=== PATIENT | female | born 1980 | race Two or more races ===

== ENCOUNTER 2022-12-29 09:27 | Outpatient (REF) | payer MEDICAID, SELFPAY ==
[2022-12-29 11:49] LABS: MANUAL DIFF FLAG NO
[2022-12-29 12:15] LABS: Basophils Percent Auto 0.5 % (0-2); Eosinophils Absolute Auto 0.1 X10*3/uL (0.0-0.4); Eosinophils Percent Auto 1.6 % (0-4); Hematocrit 38.2 % (37.0-47.0); Hemoglobin 12.8 g/dl (12.0-16.0); Imm Gran Abs Auto 0.02 X10*3/uL (0.00-0.03); Imm Gran Pct Auto 0.4 % (0.0-0.4); Lymphocytes Absolute Auto 1.5 X10*3/uL (1.2-4.9); Lymphocytes Percent Auto 27.9 % (20-40); Mean Corpuscular HGB Conc 33.5 g/dl (31.0-35.0); Mean Corpuscular Hemoglobin 28.4 pg (27.0-33.0); Mean Corpuscular Volume 84.9 fL (80.0-98.0); Mean Platelet Volume 11.3 fL (9.4-12.3); Monocytes Absolute Auto 0.4 X10*3/uL (0.1-1.2); Monocytes Percent Auto 7.1 % (2-11); Neutrophils Absolute Auto 3.4 x10*3/uL (2.0-8.3); Neutrophils Percent Auto 62.5 % (45-73); Platelet Count 269 X10*3/uL (160-400); Red Cell Distribution Width 13.2 % (11.0-16.0); White Blood Count 5.5 X10*3/uL (4.8-10.8)
[2022-12-29 12:21] LABS: Estimated Average Glucose 183 mg/dL
[2022-12-29 12:36] LABS: Alanine Aminotransferase 14 U/L (0-31); Albumin Level 3.5 g/dL (3.5-5.0); Alkaline Phosphatase 62 U/L (39-117); Anion Gap 14 (12-20); Aspartate Amino Transferase 16 U/L (5-31); Bilirubin Total 0.3 mg/dL (0.0-1.0); Blood Urea Nitrogen 17 mg/dL (9-16); Calcium 9.3 mg/dL (8.4-10.2); Carbon Dioxide 24 mmol/L (22-29); Chloride 106 mmol/L (96-108); Estimated Glomerular Filt Rate > 60; Glucose Random 142 mg/dL (60-115); Sodium 140 mmol/L (135-145); Total Protein 6.7 g/dL (6.5-8.0)
[2022-12-29 13:15] LABS: Creatinine Urine 80.12 mg/dL
== END 2022-12-29 09:28 | disposition home or self-care (01) ==
LOC: HO.HHCL 09:27
PROVIDERS: Visit Provider Internal Medicine Geriatric Medicine
DX: I10 Essential (primary) hypertension (principal); E11.40 Type 2 diabetes mellitus with diabetic neuropathy, unspecified; E78.00 Pure hypercholesterolemia, unspecified; D53.8 Other specified nutritional anemias; R01.1 Cardiac murmur, unspecified; Z79.4 Long term (current) use of insulin; Z90.710 Acquired absence of both cervix and uterus
CPT/HCPCS: 36415; 80053; 82043; 82570; 83036; 85025

== ENCOUNTER 2023-01-20 08:53 | Outpatient (REF) | payer MEDICAID, SELFPAY ==
[2023-01-20 12:06] LABS: Anion Gap 12 (12-20); Blood Urea Nitrogen 19 mg/dL (9-16); Calcium 8.9 mg/dL (8.4-10.2); Carbon Dioxide 28 mmol/L (22-29); Chloride 102 mmol/L (96-108); Estimated Glomerular Filt Rate > 60; Glucose Random 135 mg/dL (60-115); Potassium 3.9 mmol/L (3.3-5.1); Sodium 138 mmol/L (135-145)
[2023-01-20 12:53] LABS: Creatinine Urine 110.38 mg/dL; Microalbum/Creatinine Ratio Ur 246.4 ug/mg cr (<30)
== END 2023-01-20 08:54 | disposition home or self-care (01) ==
LOC: HO.HHCL 08:53
PROVIDERS: Visit Provider Family Medicine
DX: E10.21 Type 1 diabetes mellitus with diabetic nephropathy (principal); R80.9 Proteinuria, unspecified
CPT/HCPCS: 36415; 80048; 82043; 82570

== ENCOUNTER 2023-01-21 08:57 | Outpatient (REF) | payer MEDICAID, SELFPAY ==
[2023-01-21 11:35] LABS: Cholesterol 149 mg/dL (<200); HDL Cholesterol 55 mg/dL (>40); LDL Cholesterol Calculated 81 mg/dL (<100); Triglycerides 68 mg/dL (<150)
[2023-01-21 11:51] LABS: Syphilis Screen Nonreactive (Nonreactive)
[2023-01-21 11:52] LABS: HBS Num1 0.25 mIU/mL (0-7.99); HBc Num1 0.08 S/CO (0.00-0.79); HBsAGNum1 0.38 S/CO (0.00-0.99); HIV AB/AG Nonreactive (Nonreactive); HIV Num 1 0.05 S/CO (0.00-0.99); Hepatitis B Core Antibody Nonreactive (Nonreactive); Hepatitis B Surface Antigen Negative (Negative); ~Hepatitis B Surface Antibody NONREACTIVE (Nonreactive); ~Hepatitis C Antibody Nonreactive (Nonreactive)
[2023-01-21 11:54] LABS: TSH reflex Free T4 1.59 uIU/mL (0.32-4.0)
[2023-01-21 12:13] LABS: Reflex LDLD? No
[2023-01-21 14:12] LABS: CT PCR NOT DETECTED (Not Detect.); NG PCR NOT DETECTED (Not Detect.)
== END 2023-01-21 08:58 | disposition home or self-care (01) ==
LOC: HO.HHCL 08:57
PROVIDERS: Visit Provider Family Medicine
DX: E10.21 Type 1 diabetes mellitus with diabetic nephropathy (principal); I10 Essential (primary) hypertension; Z11.3 Encounter for screening for infections with a predominantly sexual mode of transmission
CPT/HCPCS: 0353U; 80061; 84443; 86704; 86706; 86780; 86803; 87340; 87389

== ENCOUNTER → 2023-01-29 10:43 | Outpatient (REF) | payer MEDICAID, SELFPAY ==
--- NOTE | 2023-01-29 10:49 | CA_ITS ---
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 Normal LV systolic and diastolic function 2. Bicuspid aortic valve with normal Dopplers 3. Upper limits of normal ascending aorta 4. No gross pericardial effusion Findings Left Ventricle Normal left ventricular size, thickness, and systolic function. The visually estimated ejection fraction is between 55-60%. Diastolic function is normal for age. Right Ventricle Normal right ventricular cavity size and systolic function. Atria Both atria are normal in size. There is no evidence of interatrial shunt. Aortic Valve There is a bicuspid aortic valve. There is mild aortic valve stenosis. There is no aortic valve regurgitation. Mitral Valve Normal mitral valve structure and function. There is trace mitral valve regurgitation. There is no mitral valve stenosis. Pulmonic Valve The pulmonic valve is likely normal. Tricuspid Valve Normal tricuspid valve structure. Tricuspid regurgitation envelope is inadequate for calculation of right ventricular systolic pressure. Normal right atrial pressure. Great Vessels The pulmonary artery was not well visualized. Venous The inferior vena cava is normal in size and collapses greater than 50% with inspiration. Pericardium/Pleural There is no evidence of pericardial effusion. Prior Study Comparison No prior study available for comparison. Measurements 2D Linear Measurements LVOT Diam: 2.00 3.0+(-)1.3 cm 2D Systolic Function EF 4C: 52.00 >55% EF 2C: 56.40 >55% EF BiP: 54.70 >55% Mitral Valve MV Pk E: 0.82 MV PK A: 0.49 MV Decel Time: 174.00 E/A: 1.70 E'Lateral: 9.79 E'Medial: 7.72 E/E' Med: 10.60 E/E' Lat: 8.40 PHT: 51.00 MVA PHT: 4.31 Decel [place]: 4.69 Aortic Valve AoV Pk Ismael: 2.35 AoV Mn Ismael: 1.63 AoV VTI: 0.48 AoV Pk Grad: 22.00 Aov Mn Grad: 12.00 TONJA Cont.VTI: 1.24 LVOT LVOT Pk Ismael: 0.81 LVOT Mn Ismael: 0.58 LVOT VTI: 0.19 LVOT Pk Grad: 3.00 LVOT Mn Grad: 1.00 LVOT Diam: 2.00 LVOT Area: 3.14 Diastolic Function MV Pk E: 0.82 MV Pk A: 0.49 E/A: 1.70 E'Medial: 7.72 E/E' Med: 10.60 E' Laterial: 9.79 E/E' Lat: 8.40 Right Ventricle TAPSE (mm): 25.40 TVS' Ismael: 11.20 Tricuspid Valve RA Press: 3.00 Great Vessels Aorta Sinus of Valsalva: 3.20 2.0-3.5 cm Ao Asc: 3.50 2.1-3.4 cm Ao Arch: 3.10 Updated in Other Vendor System with Status of Final Anival Vergara MD electronically signed on 01/30/2023 8:25:40 AM with status of Final
== END ==
LOC: HO.CARD 10:43
PROVIDERS: Visit Provider Internal Medicine Geriatric Medicine
DX: I10 Essential (primary) hypertension (principal)
CPT/HCPCS: 93306

== ENCOUNTER → 2023-01-29 10:49 | Outpatient (BNV) | payer MEDICAID, SELFPAY | PROVIDERS: Visit Provider Internal Medicine Cardiovascular Disease | DX: I35.0 Nonrheumatic aortic (valve) stenosis (principal) | CPT/HCPCS: 93306 ==

== ENCOUNTER 2024-05-06 13:56 | Emergency (ER) | payer MEDICAID, SELFPAY ==
--- NOTE | ~2024-05-06 | XR_ITS ---
EXAMINATION: XR CHEST CLINICAL INFORMATION: fevers, cough COMPARISON: None available. TECHNIQUE: Frontal view of the chest was obtained. FINDINGS: Pulmonary reticular pattern. No gross consolidation pleural effusion or pneumothorax. No hyperinflation. Cardiomediastinal silhouette is normal in size. Osseous structures are intact. XR/XR chest 1V IMPRESSION: Consider acute inflammatory versus infectious process involving the small pulmonary airway Electronically signed by: Mehran Roblero MD 05/06/2024 03:37 PM EST
[2024-05-06 14:31] VITALS: BP 130/72; BP 147/83; PULSE 118; PULSE 120; RESP 20; TEMP 39.4; O2SAT 98; O2SAT 99; BMI 21.8
--- NOTE | 2024-05-06 14:41 | ECG_ITS ---
Test Reason : WEAKNESS Blood Pressure : */* mmHG Vent. Rate : 120 BPM Atrial Rate : 120 BPM P-R Int : 122 ms QRS Dur : 66 ms QT Int : 292 ms P-R-T Axes : 52 60 8 degrees QTcB Int : 412 ms Sinus tachycardia Nonspecific T wave abnormality Abnormal ECG No previous ECGs available Referred By: Von Elias Electronically Signed By: CALE KING
--- NOTE | 2024-05-06 14:42 | ED.GENADULT ---
HPI - General Adult General Chief complaint: General Medical Stated complaint: ?UTI PER EMS Time Seen by Provider: 05/06/24 14:49 Source: patient, EMS, old records reviewed and interpreter deaf Mode of arrival: EMS Limitations: no limitations History of Present Illness ED Provider: CAMACHO HERNANDEZ narrative: 43 yo female with PMH of DM, HLD who denies travel or sick contacts but states since this morning her sugar read 400 and she started to have vaginal pain as well as dysuria. She denies discharge or concern for STI. She feels cough with nausea and weakness. She notes she was coughing so hard at one point she saw streaks of blood- not on thinners. She has had fevers up to 103 but no meds taken. She took her insulin this AM but did not eat. Patient denies abdominal pain but has diffuse body aches. MD complaint: fevers, not feeling well, dysuria, vaginal lesions, myalgias. Location: genitals, left, right, upper extremity and lower extremity Radiation: non-radiation Severity: moderate Quality: aching Pain Consistency: constant Relieving factors: none Exacerbating factors: movement Associated symptoms: cough, fever/chills, headaches, loss of appetite, malaise, nausea/vomiting, rash and weakness Treatments prior to arrival: none Related Data Previous Rx's ?Medication ?Instructions ?Recorded cefuroxime axetil 500 mg tablet 500 mg PO BID 7 days #14 tabs 05/06/24 valacyclovir 1 gram tablet 1,000 mg PO BID 7 days #14 tabs 05/06/24 Allergies Allergy/AdvReac Type Severity Reaction Status Date / Time No Known Allergies Allergy Verified 05/06/24 14:32 Review of Systems Review of Systems: Constitutional : No Weight loss, pos Fever, pos Chills ENT/Mouth : No sore throat, No Rhinorrhea Eyes: No Swelling, No Redness Cardiovascular : No Chest Pain, No SOB, NoEdema Respiratory : pos Cough, pos Sputum, No Wheezing Gastrointestinal : Positive Nausea, Positive Vomiting, no Diarrhea, no abdominal Pain, No Hematochezia, No Melena Genitourinary : pos Dysuria, No Urinary Frequency, No Hematuria, No Urgency Musculoskeletal : No joint pain, pos Myalgias, No Joint Swelling Skin : No Skin Lesions, No rash Neuro : No Weakness, No Numbness, No Dizziness, pos Headache All other systems reviewed and are negative. PMFSH Past Medical History Attestation statement: The following information was validated with the patient. Source: old records reviewed Medical History (Updated 05/07/24 @ 00:02 by Damien Dixon) Diabetes Hyperlipidemia Social History Social History (Updated 05/06/24 @ 15:32 by Patricia Salazar DO) Patient Tobacco Use Status: Never used Tobacco Smoked in Last 30 Days: No Use of substances other than those prescribed or required for medical reasons: No Advance Directives: No Advance Directives Information Provided: Yes Physical Exam ED Vital Signs: Vital Signs - 24 hr 05/06/24 14:31 05/06/24 15:57 05/06/24 17:03 Temperature 103.0 F H 100.2 F 98.8 F Pulse Rate 120 H 116 H 114 H Respiratory Rate 20 20 21 H Blood Pressure 130/72 117/56 L 119/63 Pulse Oximetry 99 97 97 Oxygen Delivery Method Room Air Room Air 05/06/24 17:45 05/06/24 19:21 Temperature 98.2 F Pulse Rate 108 H 110 H Respiratory Rate 19 17 Blood Pressure 121/64 142/88 H Pulse Oximetry 95 98 Oxygen Delivery Method Room Air Room Air BMI result Body Mass Index 21.8 Appearance: Alert. Oriented X3. No acute distress. Eyes: Pupils equal, round and reactive to light. ENT: Pharynx dry MM Neck: Normal inspection. Neck supple. CVS: tachycardic heart rate and rhythm. Pulses normal. Respiratory: No respiratory distress. Breath sounds normal. Abdomen: Soft and nontender. : Mary RN present on inner labia are vesicular lesions no discharge and no abscess noted lesions are on both inner labia Skin: Skin warm and dry. Normal skin color. Normal skin turgor. Extremities: No lower extremity edema. No calf ttp Neuro: Oriented X 3. No motor deficit. No sensory deficit. CN2-12 intact Course Course Course Narrative: diabetic patient complains of waking up this morning feeling very short of breath, complains of burning with urination complains of shortness of breath complains of fever, cough believe she coughed up sputum She also complains of vaginal itching and a bump in vaginal area Labs EKG and x-ray are ordered This is a rapid medical exam done in triage pending full history physical evaluation and dispo from ER provider Reevaluation(s) Reevaluation #1: Dr. Hidalgo: This patient was signed out to me by the previous emergency physician. The patient is a 43-year-old diabetic who is here with urinary symptoms and also vaginal discomfort. She has had symptoms for about 4 or 5 days. Additionally she has had a cough over the last 24 hours with some blood-tinged sputum. Her chest x-ray was read as showing a pulmonary reticular pattern possibly consistent with an infectious process. Her urinalysis is suggestive of a UTI. Her physical exam is consistent with genital herpes. This seems to be a first-time episode of genital herpes. She will be started on valacyclovir 1000 mg b.i.d. x7 days. The patient had received 1 g of IV ceftriaxone prior to sign-out. Since the patient may have some degree of a pneumonia as well as a UTI the patient will be prescribed cefuroxime 500 mg b.i.d. x7 days. The patient should continue her usual diabetic care. She should return if she feels significantly worse. Time: 19:37 Reevaluation #2: Filomena Tilley NP 05/13/2024 14:41 - HSV culture is positive, patient contacted with the use of a park interpreter to be made aware of this finding, discussed signs and symptoms of reoccurrence, potential for episodic antiviral versus daily suppression should she have multiple recurrences in the future, possibilities for transmission, and making any intimate partner is aware. She verbalized understanding. Had no questions. Medications Administered Discontinued Medications Generic Name Dose Route Start Last Admin Trade Name Freq PRN Reason Stop Dose Admin Ceftriaxone Sodium 1 gm 05/06/24 14:49 05/06/24 15:12 Ceftriaxone Sodium 1 Gm Vial IVPUSH 05/06/24 14:50 1 gm ONCE ONE Administration Acetaminophen 1,000 mg in 100 mls @ 400 mls/hr 05/06/24 14:49 05/06/24 15:57 Ofirmev IV 05/06/24 15:03 Infused ONCE ONE Infusion Lactated Ringer's 1,779 mls @ 1,779 mls/hr 05/06/24 14:49 05/06/24 16:45 Lr 30 ml/kg infuse over 1 hr (1779 ml) 05/06/24 15:48 Infused IV Infusion .Q1H ONE Valacyclovir HCl 1,000 mg 05/06/24 19:29 05/06/24 19:47 Valacyclovir Hcl 1,000 Mg Tablet PO 05/06/24 19:30 1,000 mg ONCE ONE Administration Medical Decision Making Medical Decision Making [facility] Narrative: 43 yo female with PMH of DM, HLD here with multiple complaints including fevers, urinary symptoms, cough, lesions in vaginal area at this time will need labs, lactic acid, cultures, UA, HSV swab, IVF, tylenol and empiric ceftriaxone. She has no abdominal ttp on exam. No gap and HCO3 normal doubt DKA. Differential Diagnosis Differential Diagnoses: The differential diagnosis associated with the presentation includes viral illness, UTI, pneumonia, herpes vaginalis Admission/Observation Consideration of admission/observation: Escalation of care including admission/observation considered signed out to Dr. Hidalgo pending workup Lab Data [facility] Lab Attestation statement: I reviewed the patient's lab results. 05/06/24 15:03 05/06/24 15:03 Labs: Lab Results 05/06/24 05/06/24 05/06/24 Range/Units 14:41 15:03 15:11 WBC 7.1 (4.8-10.8) X10*3/uL RBC 4.25 (4.20-5.50) X10*6/uL Hgb 11.8 L (12.0-16.0) g/dl Hct 34.9 L (37.0-47.0) % MCV 82.1 (80.0-98.0) fL MCH 27.8 (27.0-33.0) pg MCHC 33.8 (31.0-35.0) g/dl RDW 12.7 (11.0-16.0) % Plt Count 216 (160-400) X10*3/uL MPV 11.1 (9.4-12.3) fL Immature Gran % (Auto) 0.4 (0.0-0.4) % Neut % (Auto) 77.3 H (45-73) % Lymph % (Auto) 11.9 L (20-40) % [place] % (Auto) 9.7 (2-11) % Eos % (Auto) 0.3 (0-4) % Baso % (Auto) 0.4 (0-2) % Lymph # (Auto) 0.9 L (1.2-4.9) X10*3/uL [place] # (Auto) 0.7 (0.1-1.2) X10*3/uL Eos # (Auto) 0.0 (0.0-0.4) X10*3/uL Baso # (Auto) 0.0 (0.0-0.2) X10*3/uL Abs Immat Gran (auto) 0.03 (0.00-0.03) X10*3/uL Absolute Neuts (auto) 5.5 (2.0-8.3) x10*3/uL Absolute Nucleated RBC 0.000 (0.0-0.012) X10*3/uL Nucleated RBC % (auto) 0.0 (0.0-0.2) /100WBC VBG pH 7.42 (7.32-7.43) VBG pCO2 46 mmHg VBG pO2 26 mmHg VBG HCO3 30 H (22-26) mmol/L VBG O2 Saturation 42.0 % VBG Base Excess 5.7 mmol/L Sodium 137 (135-145) mmol/L Potassium 4.1 (3.3-5.1) mmol/L Chloride 102 (96-108) mmol/L Carbon Dioxide 27 (22-29) mmol/L Anion Gap 12 (12-20) BUN 16 (9-16) mg/dL Creatinine 0.68 (0.5-1.4) mg/dL Estim Creat Clear Calc 97.9 Estimated GFR > 60 POC Glucose 146 H (60-115) mg/dL Random Glucose 181 H (60-115) mg/dL Lactic Acid 1.6 (0.5-2.0) mmol/L Calcium 8.5 (8.4-10.2) mg/dL Total Bilirubin 0.2 (0.0-1.0) mg/dL Direct Bilirubin < 0.2 (0.0-0.5) mg/dL AST 26 (5-31) U/L ALT 12 (0-31) U/L Alkaline Phosphatase 90 (39-117) U/L Troponin I High Sens < 2.7 (<3.5-17.0) ng/L C-Reactive Protein 2.83 H (< or = 0.50) mg/dL Total Protein 6.5 (6.5-8.0) g/dL Albumin 2.8 L (3.5-5.0) g/dL Lipase 17 (8-78) U/L Beta-Hydroxybutyrate 0.98 H (0.02-0.27) mmol/L Urine Color Urine Appearance Urine pH (5.0-9.0) Ur Specific [place] (1.005-1.025) Urine Protein (Neg-Trace) mg/dL Urine Glucose (UA) (Negative) mg/dL Urine Ketones (Negative) mg/dL Urine Blood (Negative) Urine Nitrite (Negative) Ur Leukocyte Esterase (Negative) Urine RBC (0-2) /HPF Urine WBC (0-5) /HPF Ur Squamous Epith Cells (0-2) /HPF Urine Bacteria (None Seen) Hyaline Casts (0-2) /LPF Urine Yeast Urine Test (NEGATIVE) Herpes Simplex Culture 05/06/24 Range/Units 16:44 WBC (4.8-10.8) X10*3/uL RBC (4.20-5.50) X10*6/uL Hgb (12.0-16.0) g/dl Hct (37.0-47.0) % MCV (80.0-98.0) fL MCH (27.0-33.0) pg MCHC (31.0-35.0) g/dl RDW (11.0-16.0) % Plt Count (160-400) X10*3/uL MPV (9.4-12.3) fL Immature Gran % (Auto) (0.0-0.4) % Neut % (Auto) (45-73) % Lymph % (Auto) (20-40) % [place] % (Auto) (2-11) % Eos % (Auto) (0-4) % Baso % (Auto) (0-2) % Lymph # (Auto) (1.2-4.9) X10*3/uL [place] # (Auto) (0.1-1.2) X10*3/uL Eos # (Auto) (0.0-0.4) X10*3/uL Baso # (Auto) (0.0-0.2) X10*3/uL Abs Immat Gran (auto) (0.00-0.03) X10*3/uL Absolute Neuts (auto) (2.0-8.3) x10*3/uL Absolute Nucleated RBC (0.0-0.012) X10*3/uL Nucleated RBC % (auto) (0.0-0.2) /100WBC VBG pH (7.32-7.43) VBG pCO2 mmHg VBG pO2 mmHg VBG HCO3 (22-26) mmol/L VBG O2 Saturation % VBG Base Excess mmol/L Sodium (135-145) mmol/L Potassium (3.3-5.1) mmol/L Chloride (96-108) mmol/L Carbon Dioxide (22-29) mmol/L Anion Gap (12-20) BUN (9-16) mg/dL Creatinine (0.5-1.4) mg/dL Estim Creat Clear Calc Estimated GFR POC Glucose (60-115) mg/dL Random Glucose (60-115) mg/dL Lactic Acid (0.5-2.0) mmol/L Calcium (8.4-10.2) mg/dL Total Bilirubin (0.0-1.0) mg/dL Direct Bilirubin (0.0-0.5) mg/dL AST (5-31) U/L ALT (0-31) U/L Alkaline Phosphatase (39-117) U/L Troponin I High Sens (<3.5-17.0) ng/L C-Reactive Protein (< or = 0.50) mg/dL Total Protein (6.5-8.0) g/dL Albumin (3.5-5.0) g/dL Lipase (8-78) U/L Beta-Hydroxybutyrate (0.02-0.27) mmol/L Urine Color Yellow Urine Appearance Turbid Urine pH 5.5 (5.0-9.0) Ur Specific [place] >= 1.030 H (1.005-1.025) Urine Protein >=1000 (4+) H (Neg-Trace) mg/dL Urine Glucose (UA) >=1000 H (Negative) mg/dL Urine Ketones 15 (Negative) mg/dL Urine Blood Large (3+) H (Negative) Urine Nitrite Positive H (Negative) Ur Leukocyte Esterase Negative (Negative) Urine RBC 6-10 H (0-2) /HPF Urine WBC 21-50 H (0-5) /HPF Ur Squamous Epith Cells 11-20 (0-2) /HPF Urine Bacteria 4+ (None Seen) Hyaline Casts 6-10 (0-2) /LPF Urine Yeast Present Urine Test NEGATIVE (NEGATIVE) Herpes Simplex Culture SEE NOTE A Independent Interpretation I performed an independent interpretation of an: EKG and Plain X-Ray (no pneumonia) Interpretation: Rate: 120 Rhythm: sinus tachycardia [place]: normal Normal P waves. Normal JACQUELINE. Normal QRS complex. ST T wave : no LYNNE, nonspecific ST T wave changes lateral leads qTC: 412 prior studies: no prior The study has been interpreted contemporaneously by me. . Radiology Impression Discussion of test interpretation with radiology: I have reviewed the radiologist's reading. Independent Historian Clinical information obtained from an independent historian. History obtained from or confirmed by: Friend External Record Review External record reviewed: Outpatient record Prescription Management I considered prescription management with: Antiviral and Other Discharge Plan Discharge Clinical Impression: Fever, Acute viral syndrome, Acute UTI, Vesicular lesion Patient Disposition: Home, Self-Care Instructions: Genital Herpes Simplex (ED), Urinary Tract Infection in Women (ED), Fever in Adults (ED), Viral Syndrome (ED) Additional Instructions: You have been started on an antibiotic for a urinary tract infection and also for a possible lung infection. Please take this antibiotic 2 times a day as prescribed. You have already received an IV dose of an antibiotic which will cover you through tonight. Please orange picking supervisor the prescription in the morning and start taking the medicine when you orange picking supervisor the prescription in the morning. You have also been started on an antiviral medicine for what I believe is a herpes virus infection. You received your first dose of this medication here in the emergency room. Please take your next dose when you orange picking supervisor the prescriptions in the morning as well. Please continue your usual diabetic treatment. You may use acetaminophen (Tylenol) as needed for pain. Please follow up next week with your regular doctor. Return to the emergency room if you feel significantly worse at any time. Prescriptions: New cefuroxime axetil 500 mg tablet 500 mg PO BID 7 Days Qty: 14 0RF valacyclovir 1 gram tablet 1,000 mg PO BID 7 Days Qty: 14 0RF Referrals: Name,MD Josep [Primary Care Provider] - (UTI, genital herpes, cough) Stand Alone Forms: Work/School Release Interventions: ED Discharge Assessment Last Done: 05/06/24 19:53 Discharge Date/Time: 05/06/24 19:54 Print Language: Kinyarwanda
[2024-05-06 14:45] LABS: Glucose, Whole Blood 146 mg/dL (60-115)
[2024-05-06 15:11] LABS: MANUAL DIFF FLAG NO
[2024-05-06 15:12] LABS: Basophils Percent Auto 0.4 % (0-2); Eosinophils Percent Auto 0.3 % (0-4); Hematocrit 34.9 % (37.0-47.0); Hemoglobin 11.8 g/dl (12.0-16.0); Imm Gran Abs Auto 0.03 X10*3/uL (0.00-0.03); Imm Gran Pct Auto 0.4 % (0.0-0.4); Lymphocytes Absolute Auto 0.9 X10*3/uL (1.2-4.9); Lymphocytes Percent Auto 11.9 % (20-40); Mean Corpuscular HGB Conc 33.8 g/dl (31.0-35.0); Mean Corpuscular Hemoglobin 27.8 pg (27.0-33.0); Mean Corpuscular Volume 82.1 fL (80.0-98.0); Mean Platelet Volume 11.1 fL (9.4-12.3); Monocytes Absolute Auto 0.7 X10*3/uL (0.1-1.2); Monocytes Percent Auto 9.7 % (2-11); Neutrophils Absolute Auto 5.5 x10*3/uL (2.0-8.3); Neutrophils Percent Auto 77.3 % (45-73); Platelet Count 216 X10*3/uL (160-400); Red Blood Count 4.25 X10*6/uL (4.20-5.50); Red Cell Distribution Width 12.7 % (11.0-16.0); White Blood Count 7.1 X10*3/uL (4.8-10.8)
[2024-05-06] MEDS: cefTRIAXone sodium 1 GM VIAL IVPUSH (15:12)
[2024-05-06] MEDS: Acetaminophen 1,000 MG/100 ML PIGGYBACK 400 MG IV (15:12)
[2024-05-06] MEDS: LACTATED RINGERS 1779 ML IV (15:13)
[2024-05-06 15:16] LABS: VBG Base Excess 5.7 mmol/L; VBG HCO3 30 mmol/L (22-26); VBG pCO2 46 mmHg; VBG pH 7.42 (7.32-7.43); VBG pO2 26 mmHg
[2024-05-06 15:27] LABS: Beta-Hydroxybutyrate 0.98 mmol/L (0.02-0.27); Lactic Acid 1.6 mmol/L (0.5-2.0)
[2024-05-06 15:31] LABS: Alanine Aminotransferase 12 U/L (0-31); Albumin Level 2.8 g/dL (3.5-5.0); Anion Gap 12 (12-20); Aspartate Amino Transferase 26 U/L (5-31); Bilirubin Direct < 0.2 mg/dL (0.0-0.5); Bilirubin Total 0.2 mg/dL (0.0-1.0); Blood Urea Nitrogen 16 mg/dL (9-16); Calcium 8.5 mg/dL (8.4-10.2); Carbon Dioxide 27 mmol/L (22-29); Chloride 102 mmol/L (96-108); Creatinine Clr Calc Pharmacy 97.9; Estimated Glomerular Filt Rate > 60; Glucose Random 181 mg/dL (60-115); Lipase 17 U/L (8-78); Potassium 4.1 mmol/L (3.3-5.1); Sodium 137 mmol/L (135-145); Total Protein 6.5 g/dL (6.5-8.0)
[2024-05-06 15:57] VITALS: BP 117/56; PULSE 116; RESP 20; TEMP 37.9; O2SAT 97
[2024-05-06 16:13] LABS: Venous Blood Gas Refer to POC result
[2024-05-06 16:24] LABS: Alkaline Phosphatase 90 U/L (39-117)
[2024-05-06 16:50] LABS: Appearance Urine Turbid; Color Urine Yellow; Glucose Urine UA >=1000 mg/dL (Negative); Leukocyte Esterase Urine Negative (Negative); Nitrite Urine Positive (Negative); PH 5.5 (5.0-9.0); Specific Gravity - Urine >= 1.030 (1.005-1.025); UMIC TRIGGER UACC YES; Urine Blood Large (3+) (Negative); Urine Ketones 15 mg/dL (Negative); Urine Protein >=1000 (4+) mg/dL (Neg-Trace)
[2024-05-06 16:52] LABS: UPreg QC Valid YES; Urine Pregnancy NEGATIVE (NEGATIVE)
[2024-05-06 17:03] VITALS: BP 119/63; PULSE 114; RESP 21; TEMP 37.1; O2SAT 97
[2024-05-06 17:09] LABS: Troponin-I High Sensitivity < 2.7 ng/L (<3.5-17.0)
[2024-05-06 17:11] LABS: Bacteria Urine 4+ (None Seen); UACC Culture Trigger YES; WBC Urine 21-50 /HPF (0-5)
[2024-05-06 17:45] VITALS: BP 121/64; PULSE 108; RESP 19; O2SAT 95
[2024-05-06 19:07] LABS: C Reactive Protein 2.83 mg/dL (< or = 0.50)
[2024-05-06 19:21] VITALS: BP 142/88; PULSE 110; RESP 17; TEMP 36.8; O2SAT 98
[2024-05-06] MEDS: valACYclovir HCL 1,000 MG TABLET 1000 MG PO (19:47)
[2024-05-06 19:53] VITALS: BP 142/88; PULSE 110; RESP 17; TEMP 36.8; O2SAT 98
== END 2024-05-06 19:54 | disposition home or self-care (01) ==
PROVIDERS: Emergency Medicine; Physician Assistant Medical; Emergency Provider Emergency Medicine; PCP Internal Medicine Geriatric Medicine
DX: B34.9 Viral infection, unspecified (principal); N39.0 Urinary tract infection, site not specified; R30.0 Dysuria; R05.9 Cough, unspecified; R50.9 Fever, unspecified; M79.10 Myalgia, unspecified site; R00.0 Tachycardia, unspecified; N89.8 Other specified noninflammatory disorders of vagina; R51.9 Headache, unspecified; R11.2 Nausea with vomiting, unspecified; Z79.899 Other long term (current) drug therapy
CPT/HCPCS: 36415; 71045; 80048; 80076; 81001; 81025; 82010; 82803; 82947; 83605; 83690; 84484; 85025; 86140; 87040; 87086; 87088; 87186; 87255; 93005; 96361; 96365; 96375; 99284; 99285; J0131; J0696; J7120

== ENCOUNTER → 2024-05-06 14:41 | Outpatient (BNV) | payer MEDICAID, SELFPAY | PROVIDERS: Emergency Provider Emergency Medicine; PCP Internal Medicine Geriatric Medicine; Visit Provider Internal Medicine | DX: R94.31 Abnormal electrocardiogram [ECG] [EKG] (principal) | CPT/HCPCS: 93010 ==

== ENCOUNTER → 2024-05-06 14:50 | Outpatient (BNV) | payer MEDICAID, SELFPAY | PROVIDERS: Emergency Provider Emergency Medicine; PCP Internal Medicine Geriatric Medicine; Visit Provider Radiology Diagnostic Radiology | DX: R05.9 Cough, unspecified (principal); R50.9 Fever, unspecified | CPT/HCPCS: 71045 ==

== ENCOUNTER 2024-09-19 10:53 | Outpatient (REF) | payer MEDICAID, SELFPAY ==
--- OUTSIDE RECORDS SUMMARY | 2024-09-19 12:22 | XMS_ITS | Encounter Summary ---
Author Organization [employer] Address [address] [place] [address] [address] [place] [id number] Care Team Providers Care Ed Teacher Name Role Phone Arabella Correia MD Primary Care Provider [phone] Encounter Details Date Type Department Care Team (Late st Contact Info) Description 04/21/2023 Orders Only 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); Primary hypertension; Dyslipidemia; Heart murmur Social History Tobacco Use Types Packs/Day Years Used Date Smoking Tobacco: Never Smokeless Tobacco: Never Alcohol Use Standard Drinks/Week Comments Never 0 (1 standard drink = 0.6 oz pur e alcohol) Comments Unknown Sex and Gender Information Value Date Recorded Sex Assigned at Female 12/26/2022 1:22 PM EDT Legal Sex Female 12:49 PM EDT Gender Identity Female 12/26/2022 1:22 PM EDT Sexual Orientation Don't know 12/26/2022 1: 22 PM EDT documented as of this encounter Plan of Treatment Upcoming Encounters Date Type Department Care Team (Late st Contact Info) Description 09/29/2024 10:30 AM EDT Office Visit [facility] [address] [place], [place] [phone] Marylu Stark OD [address] [place] [address] 10/10/2024 10:30 AM EDT Clinical Support 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
[2024-09-19 13:00] LABS: MANUAL DIFF FLAG NO
[2024-09-19 13:10] LABS: Basophils Percent Auto 0.7 % (0-2); Eosinophils Absolute Auto 0.1 X10*3/uL (0.0-0.4); Eosinophils Percent Auto 2.2 % (0-4); Hematocrit 37.5 % (37.0-47.0); Hemoglobin 12.9 g/dl (12.0-16.0); Imm Gran Abs Auto 0.01 X10*3/uL (0.00-0.03); Imm Gran Pct Auto 0.2 % (0.0-0.4); Immature Retic Fraction 7.4 % (3.0-15.9); Lymphocytes Absolute Auto 1.7 X10*3/uL (1.2-4.9); Lymphocytes Percent Auto 37.2 % (20-40); Mean Corpuscular HGB Conc 34.4 g/dl (31.0-35.0); Mean Corpuscular Hemoglobin 27.4 pg (27.0-33.0); Mean Corpuscular Volume 79.8 fL (80.0-98.0); Mean Platelet Volume 11.8 fL (9.4-12.3); Monocytes Absolute Auto 0.3 X10*3/uL (0.1-1.2); Monocytes Percent Auto 6.4 % (2-11); Neutrophils Absolute Auto 2.4 x10*3/uL (2.0-8.3); Neutrophils Percent Auto 53.3 % (45-73); Platelet Count 266 X10*3/uL (160-400); Retic HGB Equivalent 30.9 pg (30.0-35.0); Reticulocyte Percent 1.2 % (0.5-1.8); Reticulocytes Absolute 0.057 X10*6/uL (0.026-0.095); White Blood Count 4.5 X10*3/uL (4.8-10.8)
[2024-09-19 13:39] LABS: Alanine Aminotransferase 21 U/L (0-31); Albumin Level 3.3 g/dL (3.5-5.0); Alkaline Phosphatase 100 U/L (39-117); Anion Gap 12 (12-20); Aspartate Amino Transferase 20 U/L (5-31); Bilirubin Total 0.3 mg/dL (0.0-1.0); Blood Urea Nitrogen 15 mg/dL (9-16); Carbon Dioxide 24 mmol/L (22-29); Chloride 101 mmol/L (96-108); Cholesterol 255 mg/dL (<200); Estimated Glomerular Filt Rate > 60; Glucose Random 579 mg/dL (60-115); HDL Cholesterol 55 mg/dL (>40); Iron 43 mcg/dL (30-160); LDL Cholesterol Calculated 176 mg/dL (<100); Percent Iron Saturation 19 % (15-50); Potassium 4.8 mmol/L (3.3-5.1); Sodium 132 mmol/L (135-145); Total Iron Binding Capacity 221 mcg/dL (228-428); Total Protein 6.5 g/dL (6.5-8.0); Triglycerides 123 mg/dL (<150); Unsaturated Iron Binding 178 ug/dL
[2024-09-19 13:45] LABS: Ferritin 119 ng/mL (10-250); TSH reflex Free T4 1.66 uIU/mL (0.32-4.0)
[2024-09-19 13:56] LABS: Folate 13.1 ng/mL (> or = 4.0); Vitamin B12 517 pg/mL (200-900)
[2024-09-19 16:04] LABS: Reflex LDLD? No
[2024-09-19 17:26] LABS: Creatinine Urine 34.74 mg/dL
[2024-09-19 17:38] LABS: Microalbum/Creatinine Ratio Ur 2288.4 ug/mg cr (<30)
== END 2024-09-19 10:54 | disposition home or self-care (01) ==
LOC: HO.HHCL 10:53
PROVIDERS: Visit Provider Family Medicine
DX: D64.9 Anemia, unspecified (principal); E10.21 Type 1 diabetes mellitus with diabetic nephropathy
CPT/HCPCS: 36415; 80053; 80061; 82043; 82570; 82607; 82728; 82746; 83540; 84443; 85025; 85045

== ENCOUNTER 2024-12-15 11:47 | Emergency (ER) | payer MEDICAID, SELFPAY ==
[2024-12-15 12:15] VITALS: BP 140/83; PULSE 99; RESP 16; TEMP 36.6; O2SAT 99; BMI 18.9
--- NOTE | 2024-12-15 12:26 | ED_ITS ---
HPI - General Adult General Chief complaint: General Medical Stated complaint: lump on breast Related Data Previous Rx's ?Medication ?Instructions ?Recorded cefuroxime axetil 500 mg tablet 500 mg PO BID 7 days # 14 tabs 05/06/24 valacyclovir 1 gram tablet 1,000 mg PO BID 7 days #14 tabs 05/06/24 Allergies Allergy/AdvReac Type Severity Reaction Status Date / Time No Known Allergies Allergy Verified 12/15/24 12:20 [facility] Past Medical History Medical History (Updated 12/16/24 @ 12:02 by AILYN Arce) Diabetes Hyperlipidemia Social History Social History (Updated 05/06/24 @ 15:32 by Patricia Salazar DO) Patient Tobacco Use Status: Never used Tobacco Advance Directives: No Advance Directives Information Provided: No Physical Exam ED Vital Signs: Vital Signs - 24 hr 12/15/24 12:15 Temperature 97.9 F Pulse Rate 99 Respiratory Rate 16 Blood Pressure 140/83 H Pulse Oximetry 99 Oxygen Delivery Method Room Air BMI result Body Mass Index 18.9 Course Course Course Narrative: This is a Rapid Medical Examination (RME) performed by Ewa Peñaloza PA-C in triage. Full HPI, ROS, assessment and treatment plan per primary provider in the Main ED. Hx: 44-year-old female here for eval of lump to left breast x2 days. Reports pain and erythema to the site. No drainage, no fevers. PE/vitals: Area not visualized in triage due to privacy concerns Plan: Labs Reevaluation(s) Reevaluation #1: Patient left the emergency department before myself or any of the other clinicians could review or explain physical exam findings, test results, need or lack there of for additional testing, treatment options, or a treatment plan. Medical Decision Making Lab Data 12/15/24 12:35 12/15/24 12:35 Labs: Lab Results 12/15/24 Range/Units 12:35 WBC 7.7 (4.8-10.8) X10*3/uL RBC 4.14 L (4.20-5.50) X10*6/uL Hgb 11.6 L (12.0-16.0) g/dl Hct 32.9 L (37.0-47.0) % MCV 79.5 L (80.0-98.0) fL MCH 28.0 (27.0-33.0) pg MCHC 35.3 H (31.0-35.0) g/dl RDW 12.5 (11.0-16.0) % Plt Count 273 (160-400) X10*3/uL MPV 10.5 (9.4-12.3) fL Immature Gran % (Auto) 0.3 (0.0-0.4) % Neut % (Auto) 67.3 (45-73) % Lymph % (Auto) 23.1 (20-40) % [place] % (Auto) 8.3 (2-11) % Eos % (Auto) 0.6 (0-4) % Baso % (Auto) 0.4 (0-2) % Lymph # (Auto) 1.8 (1.2-4.9) X10*3/uL [place] # (Auto) 0.6 (0.1-1.2) X10*3/uL Eos # (Auto) 0.1 (0.0-0.4) X10*3/uL Baso # (Auto) 0.0 (0.0-0.2) X10*3/uL Abs Immat Gran (auto) 0.02 (0.00-0.03) X10*3/uL Absolute Neuts (auto) 5.2 (2.0-8.3) x10*3/uL Absolute Nucleated RBC 0.000 (0.0-0.012) X10*3/uL Nucleated RBC % (auto) 0.0 (0.0-0.2) /100WBC Sodium 136 (135-145) mmol/L Potassium 4.9 (3.3-5.1) mmol/L Chloride 104 (96-108) mmol/L Carbon Dioxide 27 (22-29) mmol/L Anion Gap 10 L (12-20) BUN 16 (9-16) mg/dL Creatinine 0.75 (0.5-1.4) mg/dL Estim Creat Clear Calc 76.9 Estimated GFR > 60 Random Glucose 219 H (60-115) mg/dL Calcium 8.7 (8.4-10.2) mg/dL Magnesium 2.1 (1.6-2.6) mg/dL Total Bilirubin 0.2 (0.0-1.0) mg/dL AST 15 (5-31) U/L ALT 13 (0-31) U/L Alkaline Phosphatase 100 (39-117) U/L Total Protein 5.9 L (6.5-8.0) g/dL Albumin 2.8 L (3.5-5.0) g/dL Discharge Plan Discharge Clinical Impression: Breast lump or mass Patient Disposition: Left W/O Completing Treatment Prescriptions: No Action cefuroxime axetil 500 mg tablet 500 mg PO BID 7 Days Qty: 14 0RF valacyclovir 1 gram tablet 1,000 mg PO BID 7 Days Qty: 14 0RF Discharge Date/Time: 12/15/24 22:09
[2024-12-15 12:41] LABS: MANUAL DIFF FLAG NO
[2024-12-15 12:42] LABS: Hematocrit 32.9 % (37.0-47.0); Hemoglobin 11.6 g/dl (12.0-16.0); Imm Gran Abs Auto 0.02 X10*3/uL (0.00-0.03); Imm Gran Pct Auto 0.3 % (0.0-0.4); Lymphocytes Absolute Auto 1.8 X10*3/uL (1.2-4.9); Mean Corpuscular HGB Conc 35.3 g/dl (31.0-35.0); Mean Corpuscular Hemoglobin 28.0 pg (27.0-33.0); Mean Corpuscular Volume 79.5 fL (80.0-98.0); NRBC Abs Auto 0.000 X10*3/uL (0.0-0.012); NRBC Pct Auto 0.0 /100WBC (0.0-0.2); Platelet Count 273 X10*3/uL (160-400); Red Blood Count 4.14 X10*6/uL (4.20-5.50); White Blood Count 7.7 X10*3/uL (4.8-10.8)
[2024-12-15 12:57] LABS: Alanine Aminotransferase 13 U/L (0-31); Albumin Level 2.8 g/dL (3.5-5.0); Alkaline Phosphatase 100 U/L (39-117); Anion Gap 10 (12-20); Aspartate Amino Transferase 15 U/L (5-31); Blood Urea Nitrogen 16 mg/dL (9-16); Calcium 8.7 mg/dL (8.4-10.2); Carbon Dioxide 27 mmol/L (22-29); Chloride 104 mmol/L (96-108); Creatinine Clr Calc Pharmacy 76.9; Estimated Glomerular Filt Rate > 60; Magnesium 2.1 mg/dL (1.6-2.6); Potassium 4.9 mmol/L (3.3-5.1); Sodium 136 mmol/L (135-145); Total Protein 5.9 g/dL (6.5-8.0)
--- OUTSIDE RECORDS SUMMARY | 2024-12-15 21:13 | XMS_ITS | Encounter Summary ---
Author Organization [employer] Address [address] [facility] [address] [place] [address] Care Team Providers Care Date Night Sitter Name Role Phone Arabella Correia MD Primary Care Provider [phone] Encounter Details Date Type Department Care Team (Latest Contact Info) Description 12/12/2024 Travel Social History Tobacco Use Types Packs/Day Years Used Date Smoking Tobacco: Never Smokeless Tobacco: Never Alcohol Use Standard Drinks/Week Comments Never 0 (1 standard drink = 0.6 oz pur e alcohol) Depression Answer Date Recorded Patient Health Questionnaire-9 Score 0 09/19/2024 Patient Health Questionnaire-9 Score 0 09/19/2024 Last PHQ-9: Questionnaire Data Not on file 0 09/19/2024 Housing Stability Answer Date Recorded What is your housing situation today? I have rebeca clemons 06/16/[address] you li ve. Do you have problems with any of the following? None of the above 06/16/2024 Food Insecurity Answer Date Recorded Within the past 12 months, y ou worried that your food would run out before you got money to buy more: Never True 06/16/2024 Within the past 12 months,th e food you bought just didn't last and you didn't have enough money to get more: Never True Transportation Answer Date Recorded In the past 12 months, has l ack of transportation kept you from medical appts, meetings, work or from getting things needed for daily living? No 06/16/2024 Utilities Answer Date Recorded In the past 12 months, has t he electric, gas, oil or water company threatened to shut off services in your home? No 06/16/2024 Depression Answer Date Recorded Patient Health Questionnaire-2 Score 0 09/19/2024 Internet Access Answer Date Recorded Internet Access Q1 Yes 06/16/2024 Internet Access Q2 Not on file 06/16/2024 Comments No Sex and Gender Information Value Date Recorded Sex Assigned at Female 12/26/2022 1:22 PM EDT Legal Sex Female 12:49 PM EDT Gender Identity Female 12/26/2022 1:22 PM EDT Sexual Orientation Don't know 12/26/2022 1: 22 PM EDT documented as of this encounter Plan of Treatment Upcoming Encounters Date Type Department Care Team (Late st Contact Info) Description 12/19/2024 10:00 AM EDT Office Visit [facility] [address] [place] [address] Arabella Correia MD [address] [place] [address] 03/24/2025 10:30 AM EST Office Visit [facility] [address] [place] [address] TarkaMarylu, OD [address] [place] [address] documented as of this encounter Visit Diagnoses Not on filedocumented in this encounter Additional Health Concerns Assessment Noted Time PHQ-9 Depression Total Score: 0 09/20/19 25 11:13 AM EDT documented as of this encounter Care Teams Date Night Sitter Relationship Specialty Start Date End Date Arabella Correia MD [address] [place] [id number] PCP - General Family Medicine 01/20/23 documented as of this encounter
--- OUTSIDE RECORDS SUMMARY | 2024-12-15 21:13 | XMS_ITS | Encounter Summary ---
Author Organization [employer] Address [address] [place] [address] [address] [place] [address] Care Team Providers Care Manager Product Management Name Role Phone Arabella Correia MD Primary Care Provider [phone] Encounter Details Date Type Department Care Team (Late st Contact Info) Description 04/21/2023 Orders Only [facility] [address] [place] [address] [phone] Arabella Correia MD [address] [place] [address] [phone] Type 1 diabetes mellitus with nephropathy (CMS/HCC) [...] Description 12/19/2024 10:00 AM EDT Office Visit [facility] [address] [place] [address] [phone] Arabella Correia MD [address] [place] [address] [phone] 03/24/2025 10:30 AM EST Office Visit [facility] [address] [place] [address] Guerreroaditya Marylu, OD [address] [place] [address] documented as of this encounter Visit Diagnoses Diagnosis Type 1 diabetes mellitus with nephropathy ([facility])- Primary Primary hypertension Unspecified essential hypertension Dyslipidemia Other and unspecified hyperlipidemia Heart murmur Undiagnosed cardiac murmurs documented in this encounter Care Teams Manager Product Management Relationship Specialty Start Date End Date Arabella Correia MD [address] [place] [address] PCP - General Family Medicine 01/20/23 documented as of this encounter
--- OUTSIDE RECORDS SUMMARY | 2024-12-15 21:13 | XMS_ITS | Clinical Summary ---
Author Organization [employer] Address [address] [facility] [address] [place] [address] Care Team Providers Care Rubber Liner Name Role Phone Arabella Correia MD Primary Care Provider [phone] Allergies No known active allergies Medications Continuous Blood Gluc Material Manager (FreeStyle Todd 2 Cade) device Use as directed 1 each 01/21/20 23 Active Continuous Glucose Sensor (FreeStyle Todd 2 Sensor) misc USE DIRECTED CHANGE EVERY 14 DAYS 2 each 03/09/20 24 Active gabapentin (Neurontin) 300 MG capsule Take 1 capsule (300 mg) by mouth 3 times daily. 90 capsule 06/28/19 25 Active glucose 4 g chewable tablet Chew 4 tablets (16 g) if needed for low blood sugar. 50 tablet 3 06/28/19 25 026 Active glucose (Glutose) 40 % gel oral gel Administer 15 g orally as needed for blood glucose < 60 mg/dl. Use glucagon if pt cannot swallow or is unresponsive. Call emergency if pt is lethargic or unresponsive. 45 g 3 06/28/19 25 Active insulin lispro (HumaLOG) 100 UNIT/ML injection INJECT 5 UNITS SUBCUTANEOUSLY THREE TIMES DAILY WITH BREAKFAST, LUNCH, AND WITH DINNER 15 mL 06/28/19 25 Active insulin glargine (Lantus SoloStar) 100 UNIT/ML pen INJECT 30 UNITS SUBCUTANEOUSLY EVERY DAY AT BEDTIME 15 mL 06/28/19 25 Active empagliflozin (Jardiance) 10 MG Take 1 tablet (10 mg) by mouth in the morning. 90 tablet 1 06/28/19 25 Active SITagliptin (Januvia) 100 MG tablet Take 1 tablet (100 mg) by mouth in the morning. 90 tablet 1 06/28/19 25 Active lisinopril 10 MG tablet Take 1 tablet (10 mg) by mouth Once per day. 90 tablet 3 06/28/19 25 026 Active atorvastatin (Lipitor) 40 MG tablet Take 1 tablet (40 mg) by mouth in the morning. 90 tablet 1 06/28/19 25 Active ferrous sulfate (FeroSul) 325 (65 Fe) MG tablet TAKE 1 TABLET BY MOUTH EVERY DAY IN THE MORNING WITH BREAKFAST 90 tablet 1 06/28/19 25 Active Blood Glucose Monitoring Suppl (FreeStyle Lite) w/Device kit 1 each before breakfast, before lunch, and before evening meal. 1 kit 06/28/19 Active TRUEplus Lancets 33G miscIndications :Type 1 diabetes mellitus with nephropathy ([facility]) USE DIRECTED TO TEST BLOOD SUGAR THREE TIMES DAILY BEFORE BREAKFAST, LUNCH, AND BREANNE MEALS 100 each 5 06/28/19 Active insulin pen needle (Pentips) 32G x 4 mm misc USE FOUR TIMES DAILY WITH INSULIN 100 each 06/28/19 Active glucose blood (FREESTYLE LITE) test stripIndication s:Type 1 diabetes mellitus with nephropathy ([facility]) UNITS TO TEST BLOOD SUGAR THREE TIMES DAILY DIRECTED 100 strip 06/28/19 Active Alcohol Swabs (Alcohol Prep) pads Check blood sugar 3 times daily and as needed 100 each 11 06/28/19 Active melatonin 5 MG tablet Take 1 tablet by mouth at least 2 hours prior to your desired bedtime 30 tablet 07/01/19 Active Baqsimi Two Pack 3 MG/DOSE nasal powder USE 1 SPRAY (3MG) IN ONE NOSTRIL FOR A PATIENT WITH SEVERE HYPOGLYCEMIA WHO IS NOT RESPONSIVE AND UNABLE SELF-TREAT WITH GLUCOSE. AFTERWARDS TURN ON SIDE. MAY REPEAT IN 15MINUTES IF PATIENT DOES NOT RESPOND. 2 each 1 07/22/19 Active Active Problems Problem Noted Date Diagnosed Date Vaginal bleeding 09/28/2024 Assessment & Plan (09/28/2024 8:04 AM EDT): - s/p SYBIL/BSO for non-malignant indication - no pain - evaluate with US - refer to pigment mixer Insomnia 06/30/2024 Assessment & Plan (06/30/2024 2:39 PM EDT): - likely multifactorial - improve chronic disease management - trial of melatonin Diabetic polyneuropathy 01/20/2023 Assessment & Plan (09/19/2024 10:47 AM EDT): - continue judicious use of gabapentin - referred to rental sales agent Assessment & Plan (01/20/2023 12:36 PM EDT): - continue judicious use of gabapentin - referred to rental sales agent Albuminuria 01/19/2023 Assessment & Plan (01/20/2023 12:39 PM EDT): - 12/29/22 UACR 463 - on ACEI Diabetes mellitus 01/19/2023 Assessment & Plan (09/21/2024 12:28 PM EDT): - Dx at age 21, pt has been treated as type 2, possible SLICK - Pt was referred to inside channel account manager in regards to Dx - Hgb A1C 14.8% on 09/19/24, increase from 13.1 on 06/27/24 - Continue working on lifestyle modifications - Continue checking glucose, will prescribe CGM - Continue basal insulin (Lantus) 30 units nightly - Continue bolus insulin (Humalog) 6-12 units with meals - Continue sitagliptin 100 mg daily - Continue empagliflozin 10 mg daily - Continue glipizide XL 5 mg daily for now, but consider discontinuing due to hypoglycemia - Will prescribe glucose for hypoglycemia - Microalbumin test: 12/29/22 UACR 462, albuminuria - lipid profile: 09/19/24 TRIG 123; TC 255; LDL 176; HDL 55 - Diabetic eye exam: 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 - Foot exam: At next visit; referred to rental sales agent in the walk-in clinic - Referred to [facility] with our PharmDTOMMY - Will comeback for a glucose monitor Assessment & Plan (06/30/2024 2:38 PM EDT): - Dx at age 21, pt has been treated as type 2, possible SLICK - Pt was referred to inside channel account manager in regards to Dx - Hgb A1C 13.1 on 06/27/24, 8.0% on 12/29/22, - Continue working on lifestyle modifications - Continue checking glucose, will prescribe CGM - Continue basal insulin (Lantus) 30 units nightly - Continue bolus insulin (Humalog) 6-12 units with meals - Continue sitagliptin 100 mg daily - Continue empagliflozin 10 mg daily - Continue glipizide XL 5 mg daily for now, but consider discontinuing due to hypoglycemia - Will prescribe glucose for hypoglycemia - Microalbumin test: 12/29/22 UACR 462, albuminuria - Lipid profile: Will order today, on atorvastatin already - Diabetic eye exam: 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 - Foot exam: At next visit; referred to rental sales agent in the walk-in clinic Assessment & Plan (04/20/2023 7:20 PM EST): - Dx at age 21, pt has been treated as type 2, possible SLICK - Pt was referred to inside channel account manager in regards to Dx - Hgb A1C 8.0% on 12/29/22 - Continue working on lifestyle modifications - Continue checking glucose, will prescribe CGM - Continue Lantus 30 units nightly - Continue Humalog 6-12 units with meals; - Continue sitagliptin 100 mg daily - Continue empagliflozin 10 mg daily - Continue glipizide XL 5 mg daily for now, but consider discontinuing due to hypoglycemia - Will prescribe glucose for hypoglycemia - Microalbumin test: 12/29/22 UACR 462, albuminuria - Lipid profile: Will order today, on atorvastatin already - Diabetic eye exam: 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 - Foot exam: At next visit; referred to rental sales agent in the walk-in clinic Assessment & Plan (01/20/2023 12:46 PM EDT): - Dx at age 21, pt has been treated as type 2, possible SLICK - Pt was referred to inside channel account manager in regards to Dx - Hgb A1C 8.0% on 12/29/22 - Continue working on lifestyle modifications - Continue checking glucose, will prescribe CGM - Continue Lantus 30 units nightly - Continue Humalog 6-12 units with meals; - Continue sitagliptin 100 mg daily - Continue empagliflozin 10 mg daily - Continue glipizide XL 5 mg daily for now, but consider discontinuing due to hypoglycemia - Will prescribe glucose for hypoglycemia - Microalbumin test: 12/29/22 UACR 462, albuminuria - Lipid profile: Will order today, on atorvastatin already - Diabetic eye exam: 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 History of hospitalizations for elevated BS (? DKA) last 09/2022 in [facility] Results Component Value Date HGBA1C 8.0 (H) 12/29/2022 GLUCOSE 142 (H) 12/29/2022 Microalbum Creatinine Ratio Ur Date Value Ref Range Status 12/29/2022 463.0 (H) <30 ug/mg cr Final Comment: Albumin/Creatinine Ratio Reference Ranges: Normal: < 30 ug/mg creatinine Microalbuminuria: 30 - 300 ug/mg creatinineClinical Albuminuria: > 300 ug/mg creatinine -records for [place] requested 01/19/2023 -microalbuminuria on labs and hx neuropathy -INCREASE lisinorpil form 5mg to 10mg 01/19/2023 due to MA//Cr elevated and BP elevated -check K, CR, MA/Cr 2 weeks -continue atorvastatin 40mg -for now continue Tucker, Jardiance, glipizide, Lantus and Humalog until records reviewed and seen by endocrinology-referral to endocrinology placed 01/19/2023 -referral for podiatry placed 01/19/2023 -list of optho places given 01/19/2023 -request sooner PCP appointment via waiting list Neuropathy 01/19/2023 Primary hypertension 12/26/2022 Assessment & Plan (09/28/2024 8:01 AM EDT): -Goal BP< 130/80 per ACC/AHA guideline (Treatment threshold >= 130/80) -Mildly elevated BP today; patient attributes it to anxiety -Continue working on lifestyle modifications -Recommended self-monitoring BP. -Continue current medications: lisinopril 10 mg daily Follow up with the Nurse for blood pressure check in 2 weeks. Continue with a low sodium diet and regular exercise as tolerated. For BP < or = to 139/89 (or 129/79 for diabetic patients) continue current medication regimen and follow up with PCP and pharmacist as scheduled (should be on recall in December). For BP > or = to 140/90 (or 130/80 for diabetic patients) increase Lisinopril to 20 mg once a day If she has not been adherent to lisinopril or is experiencing adverse reaction, Start new medication Olmesartan 20 mg once a day Follow up with the Nurse for a second blood pressure check in 2-4 weeks if BP 140-150/90+ (or 130-150/80+ for diabetic patients). Confirm the date of CDTM. Assessment & Plan (06/27/2024 10:53 AM EDT): -Goal BP < 140/90 per JNC-8 and < 130/80 per ACC/AHA guideline (Treatment threshold >= 130/80) -Mildly elevated BP today -Continue working on lifestyle modifications -Recommended self-monitoring BP. -Continue current medications: -Treatment Hx: lisinopril 10 mg daily -Follow up in 3 mo, sooner if any problem arises Assessment & Plan (04/20/2023 7:20 PM EST): -Goal BP < 140/90 per JNC-8 and < 130/80 per ACC/AHA guideline (Treatment threshold >= 130/80) -Mildly elevated BP today -Continue working on lifestyle modifications -Recommended self-monitoring BP. -Continue current medications: -Treatment Hx: lisinopril 10 mg daily -Follow up in 3 mo, sooner if any problem arises Assessment & Plan (01/20/2023 12:38 PM EDT): -Goal BP < 140/90 per JNC-8 and < 130/80 per ACC/AHA guideline (Treatment threshold >= 130/80) -Mildly elevated BP today -Continue working on lifestyle modifications -Recommended self-monitoring BP. -Continue current medications: -Treatment Hx: lisinopril 10 mg daily -Follow up in 3 mo, sooner if any problem arises Dyslipidemia 12/26/2022 Assessment & Plan (09/21/2024 12:27 PM EDT): - current medication: atorvastatin 40 mg at bedtime - lipid profile: 09/19/24 TRIG 123; TC 255; LDL 176; HDL 55 - continue working on lifestyle modifications Assessment & Plan (06/30/2024 2:44 PM EDT): - current medication: atorvastatin 40 mg at bedtime - lipid profile: Will update - continue working on lifestyle modifications Assessment & Plan (04/20/2023 7:21 PM EST): - current medication: atorvastatin 40 mg at bedtime - lipid profile: Will update - continue working on lifestyle modifications Assessment & Plan (01/20/2023 12:47 PM EDT): - current medication: atorvastatin 40 mg at bedtime - lipid profile: Will update - continue working on lifestyle modifications Anemia 12/26/2022 Assessment & Plan (09/19/2024 10:48 AM EDT): - Most recent CBC in Dec 2022 was normal - Continue ferrous sulfate 325 mg daily Assessment & Plan (06/30/2024 2:43 PM EDT): - Most recent CBC in Dec 2022 was normal - Continue ferrous sulfate 325 mg daily Assessment & Plan (01/20/2023 12:46 PM EDT): - Most recent CBC in Dec 2022 was normal - Continue ferrous sulfate 325 mg daily History of hysterectomy 12/26/2022 Heart murmur 12/26/2022 Assessment & Plan (09/28/2024 8:02 AM EDT): - Transthoracic echocardiogram on 01/29/23. Normal LV systolic and diastolic function with EF 55-60%. Assessment & Plan (06/30/2024 2:45 PM EDT): - Echocardiogram ordered in the past, but patient did not complete - re-order Assessment & Plan (01/20/2023 12:38 PM EDT): - Upcoming appt for echocardiogram Resolved Problems Problem Noted Date Diagnosed Date Resolved Date Preventative health care 01/19/2023 Overview (01/19/2023): -next physical exam due after 12/27/2023 -eye care list given to pt 01/19/2023 -dental home is none Assessment & Plan (01/19/2023 11:04 AM EDT): -next physical exam due after 12/27/2023 -eye care list given to pt 01/19/2023 -dental home is none Type 2 diabetes mellitus, wi th long-term current use of insulin 12/26/2022 01/19/2023 Encounters Date Type Department Care Team Description 12/12/2024 Travel 11/07/2024 9:45 AM EDT Office Visit [facility] [address] [place] [address] RegJamien, OD Presbyopia (Primary Dx) 10/18/2024 Travel 10/03/2024 Telephone [facility] MED[facility] [address] [place] [address] Arabella Correia MD 09/29/2024 10:30 AM EDT Office Visit [facility] [address] [place] [address] Guerreroaditya Marylu, OD 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 (CMS/HCC) (Primary Dx); Presbyopia; Moderate nonproliferative diabetic retinopathy of right eye without macular edema associated with type 1 diabetes mellitus (CMS/HCC); Cortical cataract of both eyes 09/29/2024 Travel 09/20/2024 Telephone [facility] [address] [place] [phone] Arabella Correia MD 09/19/2024 10:00 AM EDT Procedure Visit [facility] [address] [place] [address] Arabella Correia MD Diabetic polyneuropathy associated with type 1 diabetes mellitus (CMS/HCC) (Primary Dx); Other specified diabetes mellitus with hyperglycemia, with long-term current use of insulin (CMS/HCC); Primary hypertension; Dyslipidemia; Anemia, unspecified type; Heart murmur; Vaginal bleeding 09/19/2024 Telephone [facility] PEDIATR[facility] [address] [place] [address] Arabella Correia MD CRITICAL LAB 09/19/2024 Travel 09/14/2024 Telephone [facility] [address], [place] [phone] Arabella Correia MD chart prep from Last 3 Months Immunizations Immunization Administration Dates Next Due Hep B, adult 06/27/2024 Influenza injectable quadrivalent preservative f ree 12/26/2022 Influenza, seasonal, injectable, preservative fr ee 06/27/2024 Pfizer Covid-19 Vaccine 12+ 06/27/2024 Tdap 06/27/2024 Social History Tobacco Use Types Packs/Day Years Used Date Smoking Tobacco: Never Smokeless Tobacco: Never Tobacco Cessation:Counseling Given: Not Answered Alcohol Use Standard Drinks/Week Comments Never 0 [...] Don't know 12/26/2022 1: 22 PM EDT Last Filed Vital Signs Vital Sign Reading Time Taken Comments Blood Pressure 138/74 09/19/2024 10:19 AM EDT Pulse 80 09/19/2024 10:19 AM EDT Temperature 36.1 C (96.9 F) 09/19/2024 10:19 AM EDT Respiratory Rate 17 09/19/2024 10:19 AM EDT Oxygen Saturation 98% 06/27/2024 10:38 AM EDT Inhaled Oxygen Concentration - - Weight 55.2 kg (121 lb 9.6 oz) 09/19/2024 10:19 AM EDT Height 160 cm (5' 3 ) 09/19/2024 10:19 AM EDT Body Mass Index 21.54 09/19/2024 10:19 AM EDT Plan of Treatment Upcoming Encounters Date Type Department Care Team (Late st Contact Info) Description 12/19/2024 10:00 AM EDT Office Visit [facility] [address] [place] [address] Arabella Correia MD [address] [place] [address] 03/24/2025 10:30 AM EST Office Visit [facility] [address] [place] [address] Marylu Stark, OD [address] [place] [address] Health Maintenance Due Date Last Done Comments Diabetes: Foot Exam 1992 Family Planning (PISQ) 1997 HPV Vaccines (1 - 3-dose series) 1997 Pneumococcal Vaccine: Pediatrics (0 to 5 Years) and At-Risk Patients (6 to 49) Years (1 of 2 - PCV) 2001 Mammogram 2022 Hepatitis B Vaccines (2 of 3 - 19+ 3-dose series) 07/25/2024 06/27/2024 Influenza Vaccine (#1) 2024 06/27/2024, 2022 Diabetes: Hemoglobin A1C 12/20/2024 025, 06/27/2024, 12/29/2022 SDOH Screening 06/16/2025 06/16/2024 Alcohol/Substance Use Screening 06/27/2025 06/27/2024 Depression Screening 09/19/2025 09/19/2024, 09/20/19 Lipid Panel 09/19/2025 09/19/2024, 01/21/2023 Eye Exam 09/29/2025 09/29/2024, 09/05, 09/29/2024, Additional history exists Tobacco Screening 09/29/2025 09/29/2024 Disability Screening 10/18/2025 10/18/2024 Zoster Vaccines (1 of 2) 2032 DTaP/Tdap/Td Vaccines (2 - Td or Tdap) 06/27/2034 06/27/2024 RSV Patients and Patients Aged 60 years or older (1 - 1-dose 75+ series) 2057 HIV Screening Completed 01/21/2023 Hepatitis C Screening Completed 01/21/2023 COVID-19 Vaccine Completed 06/27/2024 HIB Vaccines Aged Out No longer eligi ble based on patient's age to complete this topic Hepatitis A Vaccines Aged Out No long er eligible based on patient's age to complete this topic IPV Vaccines Aged Out No longer eligi ble based on patient's age to complete this topic Meningococcal B Vaccine Aged Out No l onger eligible based on patient's age to complete this topic Meningococcal Vaccine Aged Out No emmett scott eligible based on patient's age to complete this topic RSV under 20 months Aged Out No longe r eligible based on patient's age to complete this topic Rotavirus Vaccines Aged Out No longer eligible based on patient's age to complete this topic Procedures Procedure Name Priority Date/Time Associated Diagnosis Comments MAGNESIUM Routine 12/15/2024 12:35 PM EDT COMPREHENSIVE METABOLIC PANEL Routine 12/15/2024 12:35 PM EDT CBC WITH AUTO DIFFERENTIAL Routine 12/15/2024 12:35 PM EDT OCT, RETINA - OU - BOTH EYES Routine 09/29/2024 4:16 PM EDT 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 (CMS/HCC) Moderate nonproliferative diabetic retinopathy of right eye without macular edema associated with type 1 diabetes mellitus (CMS/HCC) VITAMIN B12/FOLATE, SERUM PANEL Routine 09/19/2024 10:58 AM EDT Anemia, unspecified type RETICULOCYTE COUNT Routine 09/19/2024 10 :58 AM EDT Anemia, unspecified type IRON AND TOTAL IRON BINDING CAPACITY Routine 09/19/2024 10:58 AM EDT Anemia, unspecified type FERRITIN Routine 09/19/2024 10:58 AM EDT Anemia, unspecified type TSH W/REFLEX TO FT4 Routine 09/19/2024 1 0:58 AM EDT Type 1 diabetes mellitus with nephropathy (CMS/HCC) CBC WITH AUTO DIFFERENTIAL Routine 09/19/2024 10:58 AM EDT Anemia, unspecified type LIPID PANEL WITH REFLEX TO DIRECT LDL Routine 09/19/2024 10:58 AM EDT Type 1 diabetes mellitus with nephropathy (CMS/HCC) COMPREHENSIVE METABOLIC PANEL Routine 09/19/2024 10:58 AM EDT Type 1 diabetes mellitus with nephropathy (CMS/HCC) POCT GLYCOSYLATED HEMOGLOBIN (HGB A1C) Routine 09/19/2024 10:21 AM EDT Diabetic polyneuropathy associated with type 1 diabetes mellitus (CMS/HCC) POCT GLUCOSE Routine 09/19/2024 10:21 AM EDT Diabetic polyneuropathy associated with type 1 diabetes mellitus (CMS/HCC) ALBUMIN, RANDOM URINE W/CREATININE Routine 09/19/2024 12:00 AM EDT Type 1 diabetes mellitus with nephropathy (CMS/HCC) HEPATITIS C AB W/REFL TO HCV RNA, QN, PCR Routine 01/21/2023 9:04 AM EDT Routine screening for STI (sexually transmitted infection) HIV ANTIBODY/ANTIGEN ([place] DPH) Routine 01/21/2023 9:04 AM EDT from Last 3 Months or Most Recently Relevant to Health Maintenance Results * (ABNORMAL) CBC auto differential (12/15/2024 12:35 PM EDT) Only the most recent of2 resultswithin the time period is included. White Blood Count 7.7 4.8 - 10.8 X10*3/uL [facility] Red Blood Count 4.14(L) 4.20 - 5.50 X10*6/uL [facility] Hemoglobin 11.6(L) 12.0 - 16.0 g/dl [facility] Hematocrit 32.9(L) 37.0 - 47.0 % [facility] Mean Corpuscular Volume 79.5(L) 80.0 - 98.0 fL [facility] Mean Corpuscular Hemoglobin 28.0 27.0 - 33.0 pg [facility] Mean Corpuscular HGB Conc 35.3(H) 31.0 - 35.0 g/dl [facility] Red Cell Distribution Width 12.5 11.0 - 16.0 % [facility] Platelet Count 273 160 - 400 X10*3/uL [facility] Mean Platelet Volume 10.5 9.4 - 12.3 fL [facility] Neutrophils Percent Auto 67.3 45 - 73 % [facility] Imm Gran Pct Auto 0.3 0.0 - 0.4 % [facility] Lymphocytes Percent Auto 23.1 20 - 40 % [facility] Monocytes Percent Auto 8.3 2 - 11 % [facility] Eosinophils Percent Auto 0.6 0 - 4 % [facility] Basophils Percent Auto 0.4 0 - 2 % [facility] NRBC Pct Auto 0.0 0.0 - 0.2 /100WBC [facility] Neutrophils Absolute Auto 5.2 2.0 - 8.3 x10*3/uL [facility] Imm Gran Abs Auto 0.02 0.00 - 0.03 X10*3/uL [facility] Lymphocytes Absolute Auto 1.8 1.2 - 4.9 X10*3/uL [facility] Monocytes Absolute Auto 0.6 0.1 - 1.2 X10*3/uL [facility] Eosinophils Absolute Auto 0.1 0.0 - 0.4 X10*3/uL [facility] Basophils Absolute Auto 0.0 0.0 - 0.2 X10*3/uL [facility] NRBC Abs Auto 0.000 0.0 - 0.012 X10*3/uL [facility] 12/15/2024 12:3 5 PM EDT 12/15/2024 12:39 PM EDT us Generic External Data Provider LAB BLOOD ORDERAB LES Final Result Performing Organization Address [facility] Co de Phone Number [facility] [address] [place] [phone] * Magnesium (12/15/2024 12:35 PM EDT) Magnesium 2.1 1.6 - 2.6 mg/dL [facility] 12/15/2024 12:3 5 PM EDT 12/15/2024 12:39 PM EDT Generic External Data Provider LAB BLOOD ORDERAB LES Final Result Performing Organization Address [facility] Co de Phone Number [facility] [address] [place] [address] [phone] * (ABNORMAL) Comprehensive Metabolic Panel (12/15/2024 12:35 PM EDT) Only the most recent of2 resultswithin the time period is included. Sodium 136 135 - 145 mmol/L [facility] Potassium 4.9 3.3 - 5.1 mmol/L [facility] Chloride 104 96 - 108 mmol/L [facility] Carbon Dioxide 27 22 - 29 mmol/L [facility] Anion Gap 10(L) 12 - 20 [facility] Urea Nitrogen (BUN) 16 9 - 16 mg/dL [facility] Creatinine, Serum 0.75 0.5 - 1.4 mg/dL [facility] Creatinine Clr Calc Pharmacy 76.9 [facility] Comment:Provided height and weight: 162.56 cm,49.895 kg.eGFR (calculated from the MDRD study equation) and eCrCl(calculated from the Cockcroft-Gault equation) are based ondifferent parameters and may not yield comparable results.If eCrCl result is absurd, please check patient'sheight/weight. Estimated Glomerular Filt Rate >60 [facility] Comment:Chronic Kidney Disea se: Estimated GFR < 60 mL/min/[id number] Kidney Disease: Estimated GFR < 15 mL/min/1.73m2 Glucose 219(H) 60 - 115 mg/dL [facility] Calcium 8.7 8.4 - 10.2 mg/dL [facility] Bilirubin, Total 0.2 0.0 - 1.0 mg/dL [facility] Aspartate Amino Transferase 15 5 - 31 U/L [facility] Alanine Aminotransferase 13 0 - 31 U/L [facility] Total Protein 5.9(L) 6.5 - 8.0 g/dL [facility] Albumin Level 2.8(L) 3.5 - 5.0 g/dL [facility] [facility] Alkaline Phosphatase 100 39 - 117 U/L [facility] 12/15/2024 12:3 5 PM EDT 12/15/2024 12:39 PM EDT us Generic External Data Provider LAB BLOOD ORDERAB LES Final Result Performing Organization Address [facility]/ZIP Co de Phone Number [facility] [address] [place] [phone] [phone] * OCT, Retina - OU - Both Eyes (09/29/2024 4:16 PM EDT) Narrative Marylu Stark, OD - 09/29/2024 4:16 PM EDT Right Eye Quality was good. Left Eye Quality was good. Notes OCT [facility] INTERPRETATION Optical Coherence Tomography Interpretation Report Measurements: OD OS Macula Thickness 232 microns 248 microns Test findings: OD: SS=49, normal foveal contour, no subretinal or intraretinal fluid, all layers intact. Baseline scan today OS: SS=57, normal foveal contour, intraretinal fluid with exudation superiorly and inferior temporal to macula, all layers intact. Baseline scan today Impression and Plan: Moderate NPDR without macular edema right eye and Moderate NPDR with macular edema left eye. Monitor at 6 month follow up. us Marylu Stark OD OPHTH TOMOGRAPHY Final Result * Vitamin B12 (Cobalamin) and Folate Panel, Serum (09/19/2024 10:58 AM EDT) Vitamin B12 517 200 - 900 pg/mL [facility] Comment:NORMAL 200-900 PG/ML INDETERMINATE 160-199 PG/ML DEFICIENT < 160 PG/ML Folate 13.1 > or = 4.0 ng/mL [facility] Comment:Reference Values:> o r = 4.0 ng/mL< 4.0 ng/mL suggests folate deficiency Methotrexate, aminopterin and folinic acid(leucovorin) are chemotherapeutic agents whose molecularstructures are similar to folate; therefore, the Architectfolate assay cannot be used for patients using these drugs. Blood 09/19/2024 10:5 8 AM EDT 09/19/2024 12:56 PM EDT us Arabella Correia MD LAB BLOOD ORDERABLES Final Resul t Performing Organization Address [facility]/ZIP Co de Phone Number [facility] [address] [place] [phone] [phone] * TSH with Reflex to Free T4 (09/19/2024 10:58 AM EDT) TSH reflex Free T4 1.66 0.32 - 4.0 uIU/mL [facility] Blood 09/19/2024 10:5 8 AM EDT 09/19/2024 12:56 PM EDT Arabella Correia MD LAB BLOOD ORDERABLES Final Resul t Performing Organization Address [facility] de Phone Number [facility] [address] [place] [phone] * (ABNORMAL) Lipid Panel with Reflex to Direct LDL (09/19/2024 10:58 AM EDT) Triglycerides 123 <150 mg/dL [facility] Comment:Desirable Triglyceri de: less than 150 mg/dLBorderline High Triglyceride 150-199 mg/dLHigh Triglyceride: 200-499 mg/dLVery High Triglyceride: greater than or equal to 5OO mg/dL Cholesterol 255(H) <200 mg/dL [facility] Comment:Desirable Cholestero l: less than 200 mg/dLBorderline High Cholesterol: 200-239 mg/dLHigh Cholesterol: greater than 239 mg/dL LDL Cholesterol Calculated 176(H) <100 mg/dL [facility] Comment:Desirable LDL: less than 100 mg/dLNear Optimal/Above Optimal LDL: 110- 129 mg/dLBorderline High LDL: 130-159 mg/dLHigh LDL: 160-189 mg/dLVery High LDL: greater than or equal to 190 mg/dL HDL Cholesterol 55 >40 mg/dL [facility] Comment:Desirable HDL: great er than 40 mg/dL Note: This HDL assay may give artificially low results in patients with liver disease. Blood 09/19/2024 10:5 8 AM EDT 09/19/2024 12:56 PM EDT us Arabella Correia MD LAB BLOOD ORDERABLES Final Resul t Performing Organization Address [facility] Co de Phone Number [facility] [address] [place] [phone] * (ABNORMAL) Iron And Total Iron Binding Capacity (09/19/2024 10:58 AM EDT) Iron 43 30 - 160 mcg/dL [facility] Total Iron Binding Capacity 221(L) 228 - 428 mcg/dL [facility] Percent Iron Saturation 19 15 - 50 % [facility] Unsaturated Iron Binding 178 ug/dL [facility] Blood Venous blood specimen / Unknown 09/19/2024 10:58 AM EDT 09/19/2024 12:56 PM EDT Arabella Correia MD LAB BLOOD ORDERABLES Final Resul t Performing Organization Address [facility]/ZIP Co de Phone Number [facility] [address] [place] [phone] * Reticulocyte Count (09/19/2024 10:58 AM EDT) Pathologist [facility] Reticulocytes Absolute 0.057 0.026 - 0.095 X10*6/uL [facility] Immature Retic Fraction 7.4 3.0 - 15.9 % [facility] Retic HGB Equivalent 30.9 30.0 - 35.0 pg [facility] Reticulocyte Percent 1.2 0.5 - 1.8 % [facility] Blood Venous blood specimen / Unknown 09/19/2024 10:58 AM EDT 09/19/2024 12:56 PM EDT Arabella Correia MD LAB BLOOD ORDERABLES Final Resul t Performing Organization Address City/[facility]/ZIP Co de Phone Number [facility] [address] [place] [phone] * Ferritin (09/19/2024 10:58 AM EDT) Ferritin 119 10 - 250 ng/mL [facility] Blood Venous blood specimen / Unknown 09/19/2024 10:58 AM EDT 09/19/2024 12:56 PM EDT Arabella Correia MD LAB BLOOD ORDERABLES Final Resul t [facility] [address] [place] [phone] * (ABNORMAL) POCT glycosylated hemoglobin (Hgb A1c) (09/19/2024 10:21 AM EDT) Hemoglobin A1C 14.8(A) 4.0 - 6.0 % QC Media Lot # [id number] Lot# Expiration Date Blood Capillary blood specimen / Unknown 09/19/2024 10:21 AM EDT Arabella Correia MD POINT OF CARE TEST ENTER/EDIT OR DERABLES Final Result * (ABNORMAL) POCT glucose manually resulted (09/19/2024 10:21 AM EDT) Glucose Blood, POC 450(A) 60 - 200 mg/dL Comment:[facility] QC Media Lot # [id number] Lot# Expiration Date Blood Capillary blood specimen / Unknown 09/19/2024 10:21 AM EDT Arabella Correia MD POINT OF CARE TEST ENTER/EDIT OR DERABLES Final Result * (ABNORMAL) Albumin, Random Urine W/Creatinine (09/19/2024 12:00 AM EDT) Creatinine, Urine 34.74 mg/dL [facility] Microalbumin Urine 795.0 mg/L H [facility] Microalbum Creatinine Ratio Ur 2,288.4(H ) <30 ug/mg cr [facility] Comment:Albumin/Creatinine R atio Reference Ranges: Normal: < 30 ug/mg creatinine Microalbuminuria: 30 - 300 ug/mg creatinineClinical Albuminuria: > 300 ug/mg creatinine Urine 09/19/2024 09/19/2024 us Arabella Correia MD LAB URINE ORDERABLES Final Resul t Performing Organization Address [facility] de Phone Number [facility] [address] [place] [phone] * HIV Ab/Ag (IZABELLA GARCIA) (01/21/2023 9:04 AM EDT) HIV AB/AG Nonreactive Nonreactive [facility] Comment:HIV-1 p24 Ag and/or HIV-1/HIV-2 Ab not detected.A test result that is nonreactive does not exclude thepossibility of exposure to or infection with HIV-1 and/orHIV-2. Nonreactive results in this assay for individualswith prior exposure to HIV-1 and/or HIV-2 may be due toantigen and antibody levels that are below the limit ofdetection of this assay.[employer] HIV Ag/Ab Combo assay result andsupplemental assay results should be interpreted inconjunction with the patient's clinical presentation,history and other laboratory results. If the results areinconsistent with clinical evidence, additional testing issuggested to confirm the result. 01/21/2023 9:04 AM EDT 01/21/2023 11:01 AM EDT us Arabella Correia MD LAB BLOOD ORDERABLES Final Resul t Performing Organization Address City/[facility] Co de Phone Number [facility] [address] [place] [phone] * Hepatitis C Antibody with Reflex to HCV, RNA, Quantitative, Real-Time PCR (01/21/2023 9:04 AM EDT) Hepatitis C Antibody Nonreactive Nonreactive [facility] Comment:Antibodies to HCV no t detected; does not exclude early acuteHCV infection. Blood Venous blood specimen / Unknown 01/21/2023 9:04 AM EDT 01/21/2023 11:01 AM EDT Arabella Correia MD LAB BLOOD ORDERABLES Final Resul t [facility] [address] [place] [phone] from Last 3 Months or Most Recently Relevant to Health Maintenance [facility] Care Teams Rubber Liner Relationship Specialty Start Date End Date Arabella Correia MD [address] [place] [address] PCP - General Family Medicine 01/20/23
--- OUTSIDE RECORDS SUMMARY | 2024-12-15 21:13 | XMS_ITS | Encounter Summary ---
Author Organization [employer] Address [address] [place] [address] Care Team Providers Care Nurse Practical Name Role Phone Arabella Correia MD Primary Care Provider [phone] Reason for Visit * Reason Onset Date Comments Podiatry Referral 02/24/2023 I called the p atient regarding a STD Attending Physician's Statement of Disability from Guardian. She was referred to podiatry for a foot injury. I asked if she has already been scheduled, and she stated that her appt is on 03/10/23, but she does not have the address to the provider's office. She has a PCP appt on 04/21/23. I informed her that I will get the address to the front counter attendant's office, and will mail the information to her. She verbalized understanding. Encounter Details Date Type Department Care Team ([facility] st Contact Info) Description 02/24/2023 Telephone [facility] [address] [place] [address] Arabella Correia MD [address] [place] [address] Podiatry Referral (I called the patient regarding a STD Attending Physician's Statement of Disability from Guardian. She was referred to podiatry for a foot injury. I asked if she has already been scheduled, and she stated that her appt is on 03/10/23, but she does not have the address to the provider's office. She has a PCP appt on 04/21/23. I informed her that I will get the address to the front counter attendant's office, and will mail the information to her. She verbalized understanding.) Social History Tobacco Use Types Packs/Day Years [...] PM EDT documented as of this encounter Miscellaneous Notes * Telephone Encounter - Julianna Reyes [place] - 02/24/2023 11:50 AM EST I called the patient regarding a STD Attending Physician's Statement of Disability from Guardian. She was referred to podiatry for a foot injury. I asked if she has already been scheduled, and she stated that her appt is on 03/10/23, but she does not have the address to the provider's office. She also has a PCP appt on 04/21/23. I informed her that I will get the address to the front counter attendant's office,and will mail the information to her. She verbalized understanding. documented in this encounter Plan of Treatment Upcoming Encounters Date Type Department Care Team (Late st Contact Info) Description 12/19/2024 10:00 AM EDT Office Visit [facility] [address] [place] [address] Arabella Correia MD [address] [place] [address] 03/24/2025 10:30 AM EST Office Visit [facility] [address] [place] [address] Marylu Stark, OD [address] [place] [address] documented as of this encounter Visit Diagnoses Not on filedocumented in this encounter Care Teams Nurse Practical Relationship Specialty Start Date End Date Arabella Correia MD [address] [place] [address] PCP - General Family Medicine 01/20/23 documented as of this encounter
--- OUTSIDE RECORDS SUMMARY | 2024-12-15 21:13 | XMS_ITS | Encounter Summary ---
Author Organization [email or web address] Address [address] [place] [address] [address] [place] [address] Care Team Providers Care [employer] Science Teacher Name Role Phone Arabella Correia MD Primary Care Provider [phone] Reason for Visit * Reason Comments Med Refill Encounter Details Date Type Department Care Team (Late Contact Info) Description 04/26/2024 Refill [facility] [address] [place] [phone] [phone] Arabella Correia MD [address] [place] [phone] Social History Tobacco Use Types Packs/Day Years [...] Description 12/19/2024 10:00 AM EDT Office Visit [facility] [address] [place], [place] [phone] Arabella Correia MD [address] [place] [address] 03/24/2025 10:30 AM EST Office Visit [facility] [address] [place] [phone] Marylu Stark, OD [address] [place] [address] documented as of this encounter Visit Diagnoses Not on filedocumented in this encounter Care Teams [employer] Science Teacher Relationship Specialty Start Date End Date Arabella Correia MD [address] [place] [address] PCP - General Family Medicine 01/20/23 documented as of this encounter
== END 2024-12-15 22:09 | disposition left against medical advice (07) ==
PROVIDERS: Physician Assistant Medical; Emergency Provider Emergency Medicine; PCP Family Medicine
DX: N63.20 Unspecified lump in the left breast, unspecified quadrant (principal); Z53.21 Procedure and treatment not carried out due to patient leaving prior to being seen by health care provider
CPT/HCPCS: 36415; 80053; 83735; 85025; 99281; 99283

== ENCOUNTER 2024-12-20 10:16 | Inpatient (IN) | payer MEDICAID, SELFPAY ==
--- NOTE | ~2024-12-20 | US_ITS ---
Examination: US BREAST LIMITED LEFT Reason for the study: Left breast pain, swelling, induration ?abscess. REDNESS FROM 12 o clock to 4 o clock. Findings: Targeted ultrasound of the left breast was performed at the location of the area of clinical concern. The left breast was scanned from 12:00 to 4:00 axis, including the area of redness located from 12:00-2:00 at 1 cm from the nipple. The survey shows a heterogeneous hypoechoic ill-defined area that measures approximately 3.5 x 2.3 x 1.5 cm at 1 o'clock position at 1 cm from the nipple, associated with increased vascularity on the color Doppler evaluation. US/US breast LT limited IMPRESSION: Left breast: Heterogeneous ill-defined hypoechoic area extending for about 3.5 cm area at 1 o'clock position at 1 cm from the nipple, associated with increased vascularity. In appropriate clinical setting, this appears to represent an area of the phlegmon. No definite fluid collection or abscess is demonstrated. Note that this study was not obtained for the purpose to evaluate for cancer screening. If clinical concern persists following appropriate clinical treatment, recommend breast surgical consult and bilateral diagnostic mammogram/ultrasound workup (unless if done elsewhere). Electronically signed by: Gerson Parks MD 12/20/2024 02:36 PM EDT
--- NOTE | 2024-12-20 10:46 | ED.GENADULT ---
HPI - General Adult General Chief complaint: General Medical Stated complaint: Lump/redness L breast Time Seen by Provider: 12/20/24 14:31 History of Present Illness ED Provider: Ron Roach MD HPI narrative: 44-year-old female who presents with about a week of worsening left breast redness. No systemic symptoms denies nipple discharge no prior cancers lesions or surgical history to the breast Related Data Home Medications ?Medication ?Instructions ?Recorded ?Confirmed atorvastatin 40 mg tablet 40 mg PO DAILY 12/20/24 12/20/24 empagliflozin 10 mg tablet 10 mg PO DAILY 12/20/24 12/20/24 (Jardiance) ferrous sulfate 325 mg (65 mg 325 mg PO DAILY 12/20/24 12/20/24 iron) tablet gabapentin 300 mg capsule 300 mg PO TID 12/20/24 12/20/24 insulin glargine 100 unit/mL (3 30 unit subcut BEDTIME 12/20/24 12/20/24 mL) subcutaneous pen (Lantus Solostar U-100 Insulin) lisinopril 10 mg tablet 10 mg PO DAILY 12/20/24 12/20/24 melatonin 5 mg tablet 5 mg PO BEDTIME 12/20/24 12/20/24 sitagliptin phosphate 100 mg 100 mg PO DAILY 12/20/24 12/20/24 tablet (Januvia) Previous Rx's ?Medication ?Instructions ?Recorded cephalexin 500 mg capsule 500 mg PO Q12H 10 days #20 caps 12/21/24 doxycycline monohydrate 100 mg 100 mg PO Q12H 10 days #20 caps 12/21/24 capsule insulin lispro 100 unit/mL 5 unit subcut QID 30 days #0 mL 12/21/24 subcutaneous pen metformin 500 mg tablet,extended 500 mg PO BEDTIME 30 days #30 tabs 12/21/24 release 24 hr Allergies Allergy/AdvReac Type Severity Reaction Status Date / Time No Known Allergies Allergy Verified 12/20/24 10:48 [facility] Past Medical History Medical History (Updated 12/21/24 @ 08:03 by Bridgett Ariza RN) Diabetes Hyperlipidemia Social History Social History (Updated 05/06/24 @ 15:32 by Patricia Salazar DO) Household Members: Children Housing: Apartment Patient Tobacco Use Status: Never used Tobacco service: No Physical Exam ED Exam Exam: EXAM: Gen: Alert, awake, well appearing, well hydrated. Head: Atraumatic Eyes: Anicteric, Normal conjunctiva. ENT: Moist mucosa, no pallor. ? Neck: Supple. Skin: ?No observable rash or bruising on exposed or examined skin. Breast exam left side performed with Mandi nurse assistant women's rowing coach compensation programs manager: Just above the left nipple there is approximately 6 x 3 cm area of indurated warm red tissue no expressible nipple discharge no regional lymphadenopathy Respiratory: Breathing comfortably, No distress.Clear to auscultation bilaterally, symmetric chest expansion, No wheeze, rales, ronchi. Cardiovascular: Regular rate and rhythm. No murmurs or rub. Well perfused periphery, warm extremities. No edema. ? Abdominal: No focal tenderness. Soft, no objective distension. No palpable masses or obvious organomegaly. ?No guarding, no rebound tenderness or other peritoneal findings. : No flank tenderness. Neuro: Alert. Gross movement of all extremities intact. ? Psych: Calm. Cooperative. MSK: No grossly visible deformity. Vital signs: See flowsheet Vital Signs: Vital Signs - 24 hr 12/20/24 14:36 12/20/24 16:52 Temperature 98.0 F 98.0 F Pulse Rate 91 88 Respiratory Rate 20 20 Blood Pressure 180/92 H 172/94 H Pulse Oximetry 100 100 Oxygen Delivery Method Room Air Room Air BMI result Body Mass Index 22.5 Course Course Course Narrative: This is an RME: Additional HPI, ROS, PE not included below will be deferred to primary provider. RME assessment and note performed by: Leann Orellana PA-C This is a 38-heja-ori-female, with a hx of diabetes on insulin, who presents to the ER wt complaints of left sided breast redness/pain/lump x 1 week. Went to and was told to come to the ED if pain worsens, swelling gets worse. No fevers or chills. Left breast examined with TYRELL Moore present. Induration,redness noted overlying the 12 o clock to 4 o clock position. No nipple drainage. No hx of similar symptoms. Plan: Labs, US, further ER eval needed Medications Administered Generic Name Dose Route Start Last Admin Trade Name Freq PRN Reason Stop Dose Admin Atorvastatin Calcium 40 mg 12/21/24 09:00 12/21/24 08:46 Atorvastatin Calcium 40 Mg Tablet PO 40 mg DAILY ELIUD Administration Cephalexin HCl 500 mg 12/21/24 09:00 12/21/24 08:46 Cephalexin 500 Mg Capsule PO 500 mg Q12H ELIUD Administration Doxycycline Monohydrate 100 mg 12/21/24 09:00 12/21/24 10:37 Doxycycline Monohydrate 100 Mg Capsule PO 12/31/24 08:59 100 mg Q12H ELIUD Administration Empagliflozin 10 mg 12/21/24 09:00 12/21/24 08:46 Empagliflozin 10 Mg Tablet PO 10 mg DAILY ELIUD Administration Gabapentin 300 mg 12/20/24 21:00 12/21/24 08:46 Gabapentin 300 Mg Capsule PO 300 mg TID ELIUD Administration Glipizide 5 mg 12/21/24 09:00 12/21/24 08:46 Glipizide Xl 5 Mg Tab.Er.24 PO 5 mg DAILY ELIUD Administration Insulin Glargine 24 unit 12/20/24 21:00 12/20/24 21:21 Insulin Glargine,Hum.Rec.Anlog 100 Unit/Ml 10 Ml Vial SUBCUT 24 unit BEDTIME ELIUD Administration Insulin Human Lispro 0 unit 12/20/24 21:00 12/21/24 12:07 Insulin Lispro 100 Unit/Ml 3 Ml Vial SUBCUT 2 unit QIDACHS [facility] Administration Protocol Lisinopril 10 mg 12/21/24 09:00 12/21/24 08:46 Lisinopril 10 Mg Tablet PO 10 mg DAILY ELIUD Administration Protocol Metformin HCl 500 mg 12/21/24 12:30 12/21/24 14:11 Metformin Hcl Er 500 Mg Tab.Er.24h PO Not Given BEDTIME ELIUD Sitagliptin Phosphate 100 mg 12/21/24 09:00 12/21/24 08:46 Sitagliptin Phosphate 100 Mg Tablet PO 100 mg DAILY ELIUD Administration Sodium Chloride 3 ml 12/21/24 00:00 12/21/24 07:37 0.9 % Sodium Chloride Flush 3 Ml Syringe IVFLUSH 3 ml QSHIFT ELIUD Administration Discontinued Medications Generic Name Dose Route Start Last Admin Trade Name Freq PRN Reason Stop Dose Admin Ceftriaxone Sodium 1 gm 12/20/24 20:00 12/20/24 20:00 Ceftriaxone Sodium 1 Gm Vial IVPUSH 1 gm Q24H ELIUD Administration Vancomycin HCl 1,500 mg/ 500 mls @ 333.333 mls/hr 12/20/24 14:34 12/20/24 18:27 Sodium Chloride IV 12/20/24 16:03 Infused ONCE ONE Infusion Lactated Ringer's 1,000 mls @ 999 mls/hr 12/20/24 15:15 12/20/24 18:27 Lr IV 12/20/24 17:15 Infused .Q1H1M ELIUD Infusion Vancomycin HCl 1,250 mg/ 250 mls @ 166.667 mls/hr 12/21/24 03:00 12/21/24 04:57 Sodium Chloride IV Infused Q12H ELIUD Infusion Influenza Virus Vaccine 0.5 ml 12/21/24 08:20 12/21/24 14:14 Flu Vacc [id number](6mo Up)/Pf 0.5 Ml Syringe IM 12/21/24 08:21 0.5 ml .ONCE ONE Administration Insulin Human Regular 12 unit 12/20/24 14:48 12/20/24 15:06 Insulin Regular, Human 100 Unit/Ml 10 Ml Vial IVPUSH 12/20/24 14:49 12 unit ONCE ONE Administration Medical Decision Making Medical Decision Making MDM Narrative: Medical Decision Makin-year-old female with uncontrolled diabetes here with a glucose over 500 without signs of DKA or HHS. She has had a week of swelling in the left breast what appears to be infection probably phlegmon versus early abscess. IV antibiotics, insulin for hyperglycemia. Consultation with general surgery for possible breast I and D if needed on a delayed basis. Given the patient's uncontrolled diabetes and active breast infection reasonable to admit to the hospital. We will discuss with hospitalist team. Preliminary Favored Differential Diagnosis: Uncontrolled diabetes, DKA, HHS, electrolyte derangement, breast abscess, phlegmon, less likely cancerous lesion among additional considered etiologies Testing Interpreted Independently: ?See below for details Radiology or Lab testing Results Reviewed: Reviewed radiology ultrasound report Consults: ?See below for details Independent Historians/External Chart Reviews: ?See below for details Social Determinants of Health Impacting MDM/Planning: ?See below for details Consult Healthcare Provider Management of the patient was discussed with: Hospitalist and Attendant Coin Operated Laundry (General surgery:) Lab Data MDM Lab Attestation statement: I reviewed the patient's lab results. 12/21/24 04:57 12/21/24 04:57 Labs: Lab Results 09/16/25 09/16/25 09/16/25 Range/Units 10:59 13:44 13:50 WBC 7.2 (4.8-10.8) X10*3/uL RBC 4.20 (4.20-5.50) X10*6/uL Hgb 11.7 L (12.0-16.0) g/dl Hct 33.9 L (37.0-47.0) % MCV 80.7 (80.0-98.0) fL MCH 27.9 (27.0-33.0) pg MCHC 34.5 (31.0-35.0) g/dl RDW 12.4 (11.0-16.0) % Plt Count 284 (160-400) X10*3/uL MPV 10.5 (9.4-12.3) fL Immature Gran % (Auto) 0.3 (0.0-0.4) % Neut % (Auto) 67.3 (45-73) % Lymph % (Auto) 22.9 (20-40) % [place] % (Auto) 7.6 (2-11) % Eos % (Auto) 1.5 (0-4) % Baso % (Auto) 0.4 (0-2) % Lymph # (Auto) 1.7 (1.2-4.9) X10*3/uL [place] # (Auto) 0.6 (0.1-1.2) X10*3/uL Eos # (Auto) 0.1 (0.0-0.4) X10*3/uL Baso # (Auto) 0.0 (0.0-0.2) X10*3/uL Abs Immat Gran (auto) 0.02 (0.00-0.03) X10*3/uL Absolute Neuts (auto) 4.8 (2.0-8.3) x10*3/uL Absolute Nucleated RBC 0.000 (0.0-0.012) X10*3/uL Nucleated RBC % (auto) 0.0 (0.0-0.2) /100WBC VBG pH 7.37 (7.32-7.43) VBG pCO2 50 mmHg VBG pO2 33 mmHg VBG HCO3 29 H (22-26) mmol/L VBG O2 Saturation 50.0 % VBG Base Excess 3.8 mmol/L Sodium 133 L (135-145) mmol/L Potassium 5.0 (3.3-5.1) mmol/L Chloride 100 (96-108) mmol/L Carbon Dioxide 28 (22-29) mmol/L Anion Gap 10 L (12-20) BUN 13 (9-16) mg/dL Creatinine 0.72 (0.5-1.4) mg/dL Estim Creat Clear Calc 84.2 Estimated GFR > 60 POC Glucose (60-115) mg/dL Random Glucose 534 H* (60-115) mg/dL Estimat Average Glucose Hemoglobin A1c % (<6.0) % Lactic Acid (0.5-2.0) mmol/L Calcium 8.5 (8.4-10.2) mg/dL Total Bilirubin 0.2 (0.0-1.0) mg/dL Direct Bilirubin < 0.2 (0.0-0.5) mg/dL AST 16 (5-31) U/L ALT 26 (0-31) U/L Alkaline Phosphatase 116 (39-117) U/L Total Protein 6.3 L (6.5-8.0) g/dL Albumin 2.9 L (3.5-5.0) g/dL Beta-Hydroxybutyrate 0.11 (0.02-0.27) mmol/L Procalcitonin ng/mL 12/20/24 12/20/24 12/20/24 Range/Units 15:31 16:56 17:05 WBC 7.3 (4.8-10.8) X10*3/uL RBC 4.10 L (4.20-5.50) X10*6/uL Hgb 11.6 L (12.0-16.0) g/dl Hct 33.0 L (37.0-47.0) % MCV 80.5 (80.0-98.0) fL MCH 28.3 (27.0-33.0) pg MCHC 35.2 H (31.0-35.0) g/dl RDW 12.4 (11.0-16.0) % Plt Count 300 (160-400) X10*3/uL MPV 10.4 (9.4-12.3) fL Immature Gran % (Auto) 0.3 (0.0-0.4) % Neut % (Auto) 61.0 (45-73) % Lymph % (Auto) 30.1 (20-40) % [place] % (Auto) 6.9 (2-11) % Eos % (Auto) 1.4 (0-4) % Baso % (Auto) 0.3 (0-2) % Lymph # (Auto) 2.2 (1.2-4.9) X10*3/uL [place] # (Auto) 0.5 (0.1-1.2) X10*3/uL Eos # (Auto) 0.1 (0.0-0.4) X10*3/uL Baso # (Auto) 0.0 (0.0-0.2) X10*3/uL Abs Immat Gran (auto) 0.02 (0.00-0.03) X10*3/uL Absolute Neuts (auto) 4.4 (2.0-8.3) x10*3/uL Absolute Nucleated RBC 0.000 (0.0-0.012) X10*3/uL Nucleated RBC % (auto) 0.0 (0.0-0.2) /100WBC VBG pH (7.32-7.43) VBG pCO2 mmHg VBG pO2 mmHg VBG HCO3 (22-26) mmol/L VBG O2 Saturation % VBG Base Excess mmol/L Sodium 135 (135-145) mmol/L Potassium 4.1 (3.3-5.1) mmol/L Chloride 102 (96-108) mmol/L Carbon Dioxide 29 (22-29) mmol/L Anion Gap 8 L (12-20) BUN 12 (9-16) mg/dL Creatinine 0.60 (0.5-1.4) mg/dL Estim Creat Clear Calc 101.0 Estimated GFR > 60 POC Glucose 263 H (60-115) mg/dL Random Glucose 302 H (60-115) mg/dL Estimat Average Glucose TNP Hemoglobin A1c % > 14.0 H (<6.0) % Lactic Acid 0.9 0.9 (0.5-2.0) mmol/L Calcium 8.5 (8.4-10.2) mg/dL Total Bilirubin 0.2 (0.0-1.0) mg/dL Direct Bilirubin (0.0-0.5) mg/dL AST 29 (5-31) U/L ALT 24 (0-31) U/L Alkaline Phosphatase 103 (39-117) U/L Total Protein 5.9 L (6.5-8.0) g/dL Albumin 2.8 L (3.5-5.0) g/dL Beta-Hydroxybutyrate (0.02-0.27) mmol/L Procalcitonin 0.03 ng/mL Discharge Plan Discharge Clinical Impression: Cellulitis Patient Disposition: Admitted As Inpatient Interventions: Admission Worksheet (ED) Last Done: 12/21/24 06:37 Discharge Date/Time: 12/21/24 08:03
[2024-12-20 10:47] VITALS: BP 158/74; PULSE 98; RESP 16; TEMP 36.1; O2SAT 99; BMI 22.5
[2024-12-20 11:04] LABS: MANUAL DIFF FLAG NO
[2024-12-20 11:11] LABS: Hematocrit 33.9 % (37.0-47.0); Hemoglobin 11.7 g/dl (12.0-16.0); Imm Gran Abs Auto 0.02 X10*3/uL (0.00-0.03); Imm Gran Pct Auto 0.3 % (0.0-0.4); Lymphocytes Absolute Auto 1.7 X10*3/uL (1.2-4.9); Mean Corpuscular HGB Conc 34.5 g/dl (31.0-35.0); Mean Corpuscular Hemoglobin 27.9 pg (27.0-33.0); Mean Corpuscular Volume 80.7 fL (80.0-98.0); NRBC Abs Auto 0.000 X10*3/uL (0.0-0.012); NRBC Pct Auto 0.0 /100WBC (0.0-0.2); Platelet Count 284 X10*3/uL (160-400); Red Blood Count 4.20 X10*6/uL (4.20-5.50); White Blood Count 7.2 X10*3/uL (4.8-10.8)
[2024-12-20 11:43] LABS: Alanine Aminotransferase 26 U/L (0-31); Albumin Level 2.9 g/dL (3.5-5.0); Alkaline Phosphatase 116 U/L (39-117); Anion Gap 10 (12-20); Aspartate Amino Transferase 16 U/L (5-31); Blood Urea Nitrogen 13 mg/dL (9-16); Calcium 8.5 mg/dL (8.4-10.2); Carbon Dioxide 28 mmol/L (22-29); Chloride 100 mmol/L (96-108); Creatinine Clr Calc Pharmacy 84.2; Estimated Glomerular Filt Rate > 60; Potassium 5.0 mmol/L (3.3-5.1); Sodium 133 mmol/L (135-145); Total Protein 6.3 g/dL (6.5-8.0)
[2024-12-20 13:53] LABS: Venous Blood Gas Refer to POC result
[2024-12-20 13:54] LABS: VBG HCO3 29 mmol/L (22-26); VBG O2 % Saturation 50.0 %
--- NOTE | 2024-12-20 14:32 | PC.NURSE ---
pT ROOMED AND AWAITING us RESULTS.
[2024-12-20 14:36] VITALS: BP 180/92; PULSE 91; RESP 20; TEMP 36.7; O2SAT 100
[2024-12-20] MEDS: Lactated Ringers 1,000 ML 999 ML IV ×2 (15:12→17:16)
--- NOTE | 2024-12-20 15:45 | PC.NURSE ---
Provider aware pt is hypertensive
--- NOTE | 2024-12-20 16:20 | PHA.MEDREC ---
Addendum entered by Le Aguiar RPh 12/20/24 16:46: [facility] reviewed Original Note: Pharmacy Consult ? Medication Reconciliation Pharmacy has completed the medication reconciliation. Patient was able to confirm her medications. Patient confirmed Lantus Solostar 30 units, Insulin Lispro 5 units QID. Patient last had her medications 2 days ago.
[2024-12-20 16:44] LABS: Procalcitonin 0.03 ng/mL
--- NOTE | 2024-12-20 16:45 | PM.IMHP ---
History of Present Illness Date of Service: 12/20/24 Chief Complaint: L nipple area cellulitis 2/2 DM2 Patient is a 44-year-old, primarily [place]ian-speaking with understandable level of Spanish, with PMH notable for poorly controlled DM type 2 with an A1c greater than 14 POA who presented to the a week ago with subacute onset left sided 2 o'clock position gradually progressive tender mass. Daughter was primarily agricultural chemicals inspector, and patient aware of the limitations of family member translating. Patient nontoxic appearing, afebrile and euvolemic, appears to have had sepsis secondary to cellulitis in a patient with poorly controlled DM type 2. Patient denies any trauma, fever, chills, nausea, vomiting, lightheadedness, chest pain, SOB , diarrhea or constipation. Workup in the ED- Patient underwent breast ultrasound which revealed around 3.5 cm at 1 o'clock position 1 cm from the left nipple On palpation, the induration appeared solid, no fluid noted. Labs notable for severe hyperglycemia without any anion gap, negative B HARDY Patient received vancomycin in the ED Patient is being admitted for cellulitis secondary to subacutely controlled diabetes type 2 Surgery has been consulted by ED we will see the patient in the a.m. Patient is being managed with IV ceftriaxone and doxycycline p.o. If remains hemodynamically stable, we will likely discharge the patient tomorrow Review of Systems Review of Systems: Yes all other systems are reviewed and are negative [facility] Medical History (Updated 12/20/24 @ 19:26 by Marii Joseph MD) Diabetes Hyperlipidemia Social History (Updated 05/06/24 @ 15:32 by Patricia Salazar DO) Patient Tobacco Use Status: Never used Tobacco Advance Directives: No Advance Directives Information Provided: Yes Meds Allergies Allergy/AdvReac Type Severity Reaction Status Date / Time No Known Allergies Allergy Verified 12/20/24 10:48 Active Medications: Current Medications Lactated Ringer's (Lr) 1,000 mls @ 999 mls/hr IV .Q1H1M ELIUD Stop: 12/20/24 17:15 Last Admin: 12/20/24 15:12 Dose: 999 mls/hr Home Medications ?Medication ?Instructions ?Recorded ?Confirmed ?Last Taken ?Type atorvastatin 40 mg tablet 40 mg PO DAILY 12/20/24 12/20/24 12/18/24 History empagliflozin 10 mg tablet 10 mg PO DAILY 12/20/24 12/20/24 12/18/24 History (Jardiance) ferrous sulfate 325 mg (65 mg 325 mg PO DAILY 12/20/24 12/20/24 12/18/24 History iron) tablet gabapentin 300 mg capsule 300 mg PO TID 12/20/24 12/20/24 12/18/24 History glipizide 5 mg tablet, extended 5 mg PO DAILY 12/20/24 12/20/24 12/18/24 History release 24 hr insulin glargine 100 unit/mL (3 30 unit subcut BEDTIME 12/20/24 12/20/24 12/18/24 History mL) subcutaneous pen (Lantus Solostar U-100 Insulin) insulin lispro 100 unit/mL 5 unit subcut QID 12/20/24 12/20/24 12/18/24 History subcutaneous pen lisinopril 10 mg tablet 10 mg PO DAILY 12/20/24 12/20/24 12/18/24 History melatonin 5 mg tablet 5 mg PO BEDTIME 12/20/24 12/20/24 12/18/24 History sitagliptin phosphate 100 mg 100 mg PO DAILY 12/20/24 12/20/24 12/18/24 History tablet (Januvia) Physical Exam Vital Signs and Narrative: Vital Signs: Last Vital Signs Temp 98.0 F 12/20/24 14:36 Pulse 91 12/20/24 14:36 Resp 20 12/20/24 14:36 BP 180/92 H 12/20/24 14:36 Pulse Ox 100 12/20/24 14:36 O2 Del Method Room Air 12/20/24 14:36 BMI result Body Mass Index 22.5 Patient's daughter was a paper baling machine operator, patient permitted General: AOx3, no acute distress Resp: CTA bilaterally CVS: S1, S2, RRR GI: +BS, NT, no distention Skin: Left-sided induration, erythema, nonfluctuant solid mass noted coinciding with the ultrasound findings Psych: Appropriate affect Results Labs 12/20/24 17:05 12/20/24 17:05 Labs: Laboratory Results - last 24 hr 12/20/24 12/20/24 12/20/24 10:59 13:44 13:50 MCV 80.7 MCH 27.9 MCHC 34.5 RDW 12.4 Plt Count 284 MPV 10.5 Immature Gran % (Auto) 0.3 Neut % (Auto) 67.3 Lymph % (Auto) 22.9 [place] % (Auto) 7.6 Eos % (Auto) 1.5 Baso % (Auto) 0.4 Lymph # (Auto) 1.7 [place] # (Auto) 0.6 Eos # (Auto) 0.1 Baso # (Auto) 0.0 Abs Immat Gran (auto) 0.02 Absolute Neuts (auto) 4.8 Absolute Nucleated RBC 0.000 Nucleated RBC % (auto) 0.0 VBG pH 7.37 VBG pCO2 50 VBG pO2 33 VBG HCO3 29 H VBG O2 Saturation 50.0 VBG Base Excess 3.8 Anion Gap 10 L Estim Creat Clear Calc 84.2 Estimated GFR > 60 Random Glucose 534 H* Lactic Acid Calcium 8.5 Total Bilirubin 0.2 Direct Bilirubin < 0.2 AST 16 ALT 26 Alkaline Phosphatase 116 Total Protein 6.3 L Albumin 2.9 L Beta-Hydroxybutyrate 0.11 Procalcitonin 12/20/24 15:31 MCV MCH MCHC RDW Plt Count MPV Immature Gran % (Auto) Neut % (Auto) Lymph % (Auto) [place] % (Auto) Eos % (Auto) Baso % (Auto) Lymph # (Auto) [place] # (Auto) Eos # (Auto) Baso # (Auto) Abs Immat Gran (auto) Absolute Neuts (auto) Absolute Nucleated RBC Nucleated RBC % (auto) VBG pH VBG pCO2 VBG pO2 VBG HCO3 VBG O2 Saturation VBG Base Excess Anion Gap Estim Creat Clear Calc Estimated GFR Random Glucose Lactic Acid 0.9 Calcium Total Bilirubin Direct Bilirubin AST ALT Alkaline Phosphatase Total Protein Albumin Beta-Hydroxybutyrate Procalcitonin 0.03 Imaging Radiologist's Impressions: Impressions Breast Ultrasound 12/20/24 12:16 IMPRESSION: Left breast: Heterogeneous ill-defined hypoechoic area extending for about 3.5 cm area at 1 o'clock position at 1 cm from the nipple, associated with increased vascularity. In appropriate clinical setting, this appears to represent an area of the phlegmon. No definite fluid collection or abscess is demonstrated. Note that this study was not obtained for the purpose to evaluate for cancer screening. If clinical concern persists following appropriate clinical treatment, recommend breast surgical consult and bilateral diagnostic mammogram/ultrasound workup (unless if done elsewhere). Electronically signed by: Gerson Parks MD 12/20/2024 02:36 PM EDT Assessment and Plan (1) Cellulitis: Status: Acute Plan Patient is a pleasant 44-year-old with PMH notable for poorly controlled DM type 2 (A1c greater than 14 POA), HTN, HLD who had gradually progressive subacutely worsening atraumatic cellulitis likely in the setting of poorly controlled A1c (A1c was greater than 14 this admission and in 2022 it was 8). Cellulitis secondary to poorly controlled DM type 2 Patient met sepsis criteria without severe organ dysfunction , nontoxic appearing without lactic acidosis We will initiate ceftriaxone and vancomycin, we will deescalate to p.o. based on response Patient does not appear to have any area of fluctuance or abscess Surgery consulted we will likely address this in the a.m. Poorly controlled insulin-dependent DM type 2 Severe hyperglycemia without metabolic acidosis-likely diabetes and sepsis We will reduce home insulin dose by 20% Lantus 24 units at bedtime Lispro medium correction scale Metabolic syndrome HTN HLD Continue home meds as the patient appears to be hypertensive which is likely reactive response from stress . DVT prophylaxis with Lovenox This note is constructed using voice recognition software. While every effort has been made to ensure accuracy, monogram and letter paster errors may have been included. Quality Stroke Does the patient have a stroke diagnosis?: No VTE Prior VTE?: No VTE Risk Level:: Medical - moderate - high VTE Device Contraindication: N/A - Device Ordered VTE Drug Contraindication: N/A - Med Ordered
[2024-12-20 16:52] VITALS: BP 172/94; PULSE 88; RESP 20; TEMP 36.7; O2SAT 100
[2024-12-20 17:00] LABS: Glucose, Whole Blood 263 mg/dL (60-115)
[2024-12-20 17:10] LABS: MANUAL DIFF FLAG NO
[2024-12-20 17:13] LABS: Hematocrit 33.0 % (37.0-47.0); Hemoglobin 11.6 g/dl (12.0-16.0); Imm Gran Abs Auto 0.02 X10*3/uL (0.00-0.03); Imm Gran Pct Auto 0.3 % (0.0-0.4); Lymphocytes Absolute Auto 2.2 X10*3/uL (1.2-4.9); Mean Corpuscular HGB Conc 35.2 g/dl (31.0-35.0); Mean Corpuscular Hemoglobin 28.3 pg (27.0-33.0); Mean Corpuscular Volume 80.5 fL (80.0-98.0); NRBC Abs Auto 0.000 X10*3/uL (0.0-0.012); NRBC Pct Auto 0.0 /100WBC (0.0-0.2); Platelet Count 300 X10*3/uL (160-400); Red Blood Count 4.10 X10*6/uL (4.20-5.50); White Blood Count 7.3 X10*3/uL (4.8-10.8)
[2024-12-20 17:24] LABS: Alanine Aminotransferase 24 U/L (0-31); Albumin Level 2.8 g/dL (3.5-5.0); Alkaline Phosphatase 103 U/L (39-117); Anion Gap 8 (12-20); Aspartate Amino Transferase 29 U/L (5-31); Blood Urea Nitrogen 12 mg/dL (9-16); Calcium 8.5 mg/dL (8.4-10.2); Carbon Dioxide 29 mmol/L (22-29); Chloride 102 mmol/L (96-108); Creatinine Clr Calc Pharmacy 101.0; Estimated Glomerular Filt Rate > 60; Potassium 4.1 mmol/L (3.3-5.1); Sodium 135 mmol/L (135-145); Total Protein 5.9 g/dL (6.5-8.0)
[2024-12-20 17:37] LABS: Hemoglobin A1C 477.9266 umol/L; Total Hemoglobin (HGBA1C) 3027.2538 umol/L
--- NOTE | 2024-12-20 19:51 | PHA.PROG ---
Admission Date/Time: December 20, 2024 19:32 Indication: SSTI Weight in k.7 kg Adjusted body weight in K kg [place] body weight in K.4 kg Obesity Dosing Indication % IBW: Serum Creatinine - Last 168 Hours 12/20/24 12/20/24 10:59 17:05 Creatinine 0.72 0.60 Estimated CrCl and GFR - Last 168 Hours 12/20/24 12/20/24 10:59 17:05 Estim Creat Clear Calc 84.2 101.0 Estimated GFR > 60 > 60 Vancomycin Loading Dose: 1500 mg x 1 Current Vancomycin Dosing Regimen: 1250 mg q12h Vancomycin Monitoring using AUC goal of 400 - 600 range with trough as surrogate marker: predicted auc [id number] Date and Time for next Vancomycin Level to be drawn: random before 3rd dose - 12/21 @1300 Pharmacist Comments on Vancomycin Plan: Vancomycin dosing will take advantage of [employer] as a clinical decision support tool that uses Bayesian modeling to calculate individual patient's pharmacokinetic parameters and forecast the patient's drug concentration time course with the target goal AUC 24 range of 400 - 600 mg/L/hr.
[2024-12-20 20:57] LABS: Glucose, Whole Blood 357 mg/dL (60-115)
--- NOTE | 2024-12-20 21:07 | HO.NURTONUR ---
Addendum entered by Laxmi Oliver RN 12/20/24 21:14: per provider, verbal order of 5 units of lispro to be given. Original Note: RN assumed care for pt at 1900; Pt AxOx4, Independent, able to make needs known. She is bilingual. Pts POC at 2100 was 357. RN reached out to admitting provider. Waiting on further orders for sliding scale.
[2024-12-20] MEDS: Insulin Glargine,Hum.rec.anlog 100 UNIT/ML 10 ML VIAL 24 UNIT SUBCUT (21:21)
--- NOTE | 2024-12-20 21:36 | PM.CNGS ---
History of Present Illness Consult details Consult date: 12/20/24 Requesting physician: Ron Roach Narrative: The patient is a 44-year-old female who comes into the emergency room complaining of left breast pain mass which started about 5 6 days ago. About 5 days ago she came into the ER but was not seen left before being evaluated. She comes back now because the area continues to get worse it is hard firm indurated and tender. She denies any fevers or chills. She has never had any issues like this before. She said she did have a mammogram in [place] a long time ago and they did not find anything worrisome. There is no breast cancer history in her family. She denies any trauma to the area no bug bites. Patient is diabetic in his on insulin but isn't very compliant and comes in now with a hemoglobin A1c in the 14 range and her blood glucose at around 500. Review of Systems Review of Systems: No cardiac urinary respiratory musculoskeletal issues PMFSH Past Medical History Medical History (Updated 12/20/24 @ 23:24 by Jeri Arana MD) Diabetes Hyperlipidemia Family History Pertinent family history: No family history of breast cancer Social History Social History (Updated 05/06/24 @ 15:32 by Patricia Salazar DO) Patient Tobacco Use Status: Never used Tobacco Advance Directives: No Advance Directives Information Provided: Yes Meds Allergies Allergy/AdvReac Type Severity Reaction Status Date / Time No Known Allergies Allergy Verified 12/20/24 10:48 Active Medications: Current Medications Acetaminophen (Acetaminophen 325 Mg Tablet) 650 mg PO Q6H PRN PRN Reason: Pain, Mild 1-3,fever,headache Atorvastatin Calcium (Atorvastatin Calcium 40 Mg Tablet) 40 mg PO DAILY [facility] Calcium Carbonate (Calcium Carbonate 750 Mg Tab.Chew) 750 mg PO Q4H PRN PRN Reason: Heartburn Ceftriaxone Sodium (Ceftriaxone Sodium 1 Gm Vial) 1 gm IVPUSH Q24H [facility] Last Admin: 12/20/24 20:00 Dose: 1 gm Dextrose (Dextrose 50 % 25 Gm/50 Ml Syringe) 25 gm IVPUSH Q15M PRN; Protocol PRN Reason: per Hypoglycemia Standing Ord. Empagliflozin (Empagliflozin 10 Mg Tablet) 10 mg PO DAILY [facility] Gabapentin (Gabapentin 300 Mg Capsule) 300 mg PO TID [facility] Last Admin: 12/20/24 20:00 Dose: 300 mg Glipizide (Glipizide Xl 5 Mg Tab.Er.24) 5 mg PO DAILY [facility] Glucose (Glucose Gel 15 Gm Gel..Gram.) 15 gm PO Q15M PRN; Protocol PRN Reason: per Hypoglycemia Standing Ord. Vancomycin HCl 1,250 mg/ (Sodium Chloride) 250 mls @ 166.667 mls/hr IV Q12H [facility] Insulin Glargine (Insulin Glargine,Hum.Rec.Anlog 100 Unit/Ml 10 Ml Vial) 24 unit SUBCUT BEDTIME [facility] Last Admin: 12/20/24 21:21 Dose: 24 unit Insulin Human Lispro (Insulin Lispro 100 Unit/Ml 3 Ml Vial) 0 unit SUBCUT QIDACHS [facility]; Protocol Last Admin: 12/20/24 21:22 Dose: 5 unit Lisinopril (Lisinopril 10 Mg Tablet) 10 mg PO DAILY [facility]; Protocol Magnesium Hydroxide (Milk Of Magnesia 30 Ml Oral.Susp) 30 ml PO DAILY PRN PRN Reason: Constipation Melatonin (Melatonin 3 Mg Tablet) 6 mg PO BEDTIME PRN PRN Reason: Insomnia Pharmacy Consult (Consult Rx Vancomycin Dosing) 1 each MISCELLANE DAILY PRN PRN Reason: Consult order Sitagliptin Phosphate (Sitagliptin Phosphate 100 Mg Tablet) 100 mg PO DAILY [facility] Sodium Chloride (0.9 % Sodium Chloride Flush 3 Ml Syringe) 3 ml IVFLUSH QSHIFT [facility] Home Medications ?Medication ?Instructions ?Recorded ?Confirmed ?Last Taken ?Type atorvastatin 40 mg tablet 40 mg PO DAILY 12/20/24 12/20/24 12/18/24 History empagliflozin 10 mg tablet 10 mg PO DAILY 12/20/24 12/20/24 12/18/24 History (Jardiance) ferrous sulfate 325 mg (65 mg 325 mg PO DAILY 12/20/24 12/20/24 12/18/24 History iron) tablet gabapentin 300 mg capsule 300 mg PO TID 12/20/24 12/20/24 12/18/24 History glipizide 5 mg tablet, extended 5 mg PO DAILY 12/20/24 12/20/24 12/18/24 History release 24 hr insulin glargine 100 unit/mL (3 30 unit subcut BEDTIME 12/20/24 12/20/24 12/18/24 History mL) subcutaneous pen (Lantus Solostar U-100 Insulin) insulin lispro 100 unit/mL 5 unit subcut QID 12/20/24 12/20/24 12/18/24 History subcutaneous pen lisinopril 10 mg tablet 10 mg PO DAILY 12/20/24 12/20/24 12/18/24 History melatonin 5 mg tablet 5 mg PO BEDTIME 12/20/24 12/20/24 12/18/24 History sitagliptin phosphate 100 mg 100 mg PO DAILY 12/20/24 12/20/24 12/18/24 History tablet (Januvia) Physical Exam Vital Signs: Vital Signs: Last Vital Signs Temp 98.0 F 12/20/24 16:52 Pulse 88 12/20/24 16:52 Resp 20 12/20/24 16:52 BP 172/94 H 12/20/24 16:52 Pulse Ox 100 12/20/24 16:52 O2 Del Method Room Air 12/20/24 16:52 BMI result Body Mass Index 22.5 Const: General: cooperative, healthy appearing, comfortable and no acute distress Chest: Other: Left breast area from about the 2 o'clock position to 9 o'clock position just superior to the nipple-areolar complex there is an area of firm induration with some central mild erythema. The areas tender to palpation. There is no nipple discharge. She does have some left lower axillary palpable lymph node which role in his not fixed. The right breast is within normal limits does have some dense tissue but nothing as significant as this. Chest palpation & inspection: normal inspection of the chest Resp: Effort & Inspection: normal respiratory effort Cardio: Rate: regular rate Rhythm: regular rhythm Results Labs 12/20/24 17:05 12/20/24 17:05 Labs: Abnormal lab results 12/20/24 12/20/24 12/20/24 Range/Units 10:59 13:50 16:56 RBC (4.20-5.50) X10*6/uL Hgb 11.7 L (12.0-16.0) g/dl Hct 33.9 L (37.0-47.0) % MCHC (31.0-35.0) g/dl VBG HCO3 29 H (22-26) mmol/L Sodium 133 L (135-145) mmol/L Anion Gap 10 L (12-20) POC Glucose 263 H (60-115) mg/dL Random Glucose 534 H* (60-115) mg/dL Hemoglobin A1c % (<6.0) % Total Protein 6.3 L (6.5-8.0) g/dL Albumin 2.9 L (3.5-5.0) g/dL 12/20/24 12/20/24 Range/Units 17:05 20:53 RBC 4.10 L (4.20-5.50) X10*6/uL Hgb 11.6 L (12.0-16.0) g/dl Hct 33.0 L (37.0-47.0) % MCHC 35.2 H (31.0-35.0) g/dl VBG HCO3 (22-26) mmol/L Sodium (135-145) mmol/L Anion Gap 8 L (12-20) POC Glucose 357 H* (60-115) mg/dL Random Glucose 302 H (60-115) mg/dL Hemoglobin A1c % > 14.0 H (<6.0) % Total Protein 5.9 L (6.5-8.0) g/dL Albumin 2.8 L (3.5-5.0) g/dL Short CBC 12/20/24 12/20/24 Range/Units 10:59 17:05 WBC 7.2 7.3 (4.8-10.8) X10*3/uL Hgb 11.7 L 11.6 L (12.0-16.0) g/dl Hct 33.9 L 33.0 L (37.0-47.0) % Plt Count 284 300 (160-400) X10*3/uL BMP 12/20/24 12/20/24 10:59 17:05 Sodium 133 L 135 Potassium 5.0 4.1 Chloride 100 102 Carbon Dioxide 28 29 BUN 13 12 Creatinine 0.72 0.60 Calcium 8.5 8.5 Liver Function 12/20/24 12/20/24 Range/Units 10:59 17:05 Total Bilirubin 0.2 0.2 (0.0-1.0) mg/dL Direct Bilirubin < 0.2 (0.0-0.5) mg/dL AST 16 29 (5-31) U/L ALT 26 24 (0-31) U/L Alkaline Phosphatase 116 103 (39-117) U/L Albumin 2.9 L 2.8 L (3.5-5.0) g/dL All other labs normal. Imaging Additional studies: Ordering Physician: Leann Orellana Date of Service: 12/20/24 Procedure(s): US breast LT limited Accession Number(s): [id number] cc: Arabella Correia MD; Leann Orellana~ Reason for Exam: Left breast pain, swelling, induration ?abscess Examination: US BREAST LIMITED LEFT Reason for the study: Left breast pain, swelling, induration ?abscess. REDNESS FROM 12 o clock to 4 o clock. Findings: Targeted ultrasound of the left breast was performed at the location of the area of clinical concern. The left breast was scanned from 12:00 to 4:00 axis, including the area of redness located from 12:00-2:00 at 1 cm from the nipple. The survey shows a heterogeneous hypoechoic ill-defined area that measures approximately 3.5 x 2.3 x 1.5 cm at 1 o'clock position at 1 cm from the nipple, associated with increased vascularity on the color Doppler evaluation. US/US breast LT limited IMPRESSION: Left breast: Heterogeneous ill-defined hypoechoic area extending for about 3.5 cm area at 1 o'clock position at 1 cm from the nipple, associated with increased vascularity. In appropriate clinical setting, this appears to represent an area of the phlegmon. No definite fluid collection or abscess is demonstrated. Note that this study was not obtained for the purpose to evaluate for cancer screening. If clinical concern persists following appropriate clinical treatment, recommend breast surgical consult and bilateral diagnostic mammogram/ultrasound workup (unless if done elsewhere). Electronically signed by: Gerson Parks MD 12/20/2024 02:36 PM EDT Assessment and Plan (1) Breast infection in female: Status: Acute Plan 44-year-old female with left breast infection with large firm phlegmon type mass. Ultrasound findings are more consistent with some type of infection and not a true solid tumor type lesion which would be worrisome for cancer. On evaluation here there is no fluid within this phlegmon making this not quite an abscess at this point. Patient's white count is elevated and her hemoglobin A1c is elevated as well as her blood glucose level. At this point plan to follow along and see how she does with IV antibiotics. At some point this phlegmon material may soft and up and liquify and turned into a true abscess which may need to be 1st attempt at aspiration if not then incision and drainage. Patient says she has never had anything like this before. She does not believe that she can be and her test is negative. Plan to also continue with tight glucose control medication mazariegos and diet. She really needs to get this better controlled in order for this to heal and do well eventually. At some point when this improves would recommend getting a mammogram to evaluate the rest of the breast tissues bilaterally for potential malignancy. We will keep following as this tissue we will change and may need I and D Procedures Date of Service Date of Service: 12/20/24
[2024-12-21] MEDS: 0.9 % Sodium Chloride Flush 3 ML SYRINGE IVFLUSH ×2 (00:07→07:37)
[2024-12-21 05:30] LABS: MANUAL DIFF FLAG NO
[2024-12-21 05:38] LABS: Hematocrit 33.7 % (37.0-47.0); Hemoglobin 11.2 g/dl (12.0-16.0); Imm Gran Abs Auto 0.01 X10*3/uL (0.00-0.03); Imm Gran Pct Auto 0.2 % (0.0-0.4); Lymphocytes Absolute Auto 2.5 X10*3/uL (1.2-4.9); Mean Corpuscular HGB Conc 33.2 g/dl (31.0-35.0); Mean Corpuscular Hemoglobin 27.3 pg (27.0-33.0); Mean Corpuscular Volume 82.0 fL (80.0-98.0); NRBC Abs Auto 0.000 X10*3/uL (0.0-0.012); NRBC Pct Auto 0.0 /100WBC (0.0-0.2); Platelet Count 295 X10*3/uL (160-400); Red Blood Count 4.11 X10*6/uL (4.20-5.50); White Blood Count 6.5 X10*3/uL (4.8-10.8)
[2024-12-21 05:52] LABS: Alanine Aminotransferase 22 U/L (0-31); Albumin Level 2.5 g/dL (3.5-5.0); Alkaline Phosphatase 89 U/L (39-117); Anion Gap 8 (12-20); Aspartate Amino Transferase 25 U/L (5-31); Blood Urea Nitrogen 11 mg/dL (9-16); Calcium 8.3 mg/dL (8.4-10.2); Carbon Dioxide 27 mmol/L (22-29); Chloride 108 mmol/L (96-108); Creatinine Clr Calc Pharmacy 94.7; Estimated Glomerular Filt Rate > 60; Potassium 4.1 mmol/L (3.3-5.1); Sodium 139 mmol/L (135-145); Total Protein 5.4 g/dL (6.5-8.0)
[2024-12-21 05:54] VITALS: BP 157/80; PULSE 93; RESP 16; TEMP 36.8; O2SAT 95
--- NOTE | 2024-12-21 06:29 | PC.NURSE ---
Pt is a 44 F being admitted for cellulitis secondary to subacutely controlled diabetes type 2 who primarily speaks K[place]z but is able to understand and speak some Faroese. PMH notable for poorly controlled DM type 2 with an A1c greater than 14. Patient met sepsis criteria without severe organ dysfunction , nontoxic appearing without lactic acidosis. Pt medicated per JUN. Pt is AxOx4, ambulates Independently. Surgery consult in the AM.
[2024-12-21 07:08] LABS: Glucose, Whole Blood 138 mg/dL (60-115)
--- NOTE | 2024-12-21 07:44 | P.PNIM_ITS ---
Subjective Subjective Date of Service: 12/21/24 Physical Exam 2 Vital Signs: Vital Signs: Last Vital Signs Temp 98.3 F 12/21/24 05:54 Pulse 93 12/21/24 05:54 Resp 16 12/21/24 05:54 BP 157/80 H 12/21/24 05:54 Pulse Ox 95 12/21/24 05:54 O2 Del Method Room Air 12/21/24 05:54 BMI result Body Mass Index 22.5 Objective Data Active Medications Acetaminophen (Acetaminophen 325 Mg Tablet) 650 mg PO Q6H PRN PRN Reason: Pain, Mild 1-3,fever,headache Atorvastatin Calcium (Atorvastatin Calcium 40 Mg Tablet) 40 mg PO DAILY [facility] Calcium Carbonate (Calcium Carbonate 750 Mg Tab.Chew) 750 mg PO Q4H PRN PRN Reason: Heartburn Ceftriaxone Sodium (Ceftriaxone Sodium 1 Gm Vial) 1 gm IVPUSH Q24H [facility] Last Admin: 12/20/24 20:00 Dose: 1 gm Documented By: RICARDO Dextrose (Dextrose 50 % 25 Gm/50 Ml Syringe) 25 gm IVPUSH Q15M PRN; Protocol PRN Reason: per Hypoglycemia Standing Ord. Empagliflozin (Empagliflozin 10 Mg Tablet) 10 mg PO DAILY [facility] Gabapentin (Gabapentin 300 Mg Capsule) 300 mg PO TID [facility] Last Admin: 12/20/24 20:00 Dose: 300 mg Documented By: RICARDO Glipizide (Glipizide Xl 5 Mg Tab.Er.24) 5 mg PO DAILY [facility] Glucose (Glucose Gel 15 Gm Gel..Gram.) 15 gm PO Q15M PRN; Protocol PRN Reason: per Hypoglycemia Standing Ord. Vancomycin HCl 1,250 mg/ (Sodium Chloride) 250 mls @ 166.667 mls/hr IV Q12H [facility] Last Infusion: 12/21/24 04:57 Dose: Infused Documented By: RICARDO Insulin Glargine (Insulin Glargine,Hum.Rec.Anlog 100 Unit/Ml 10 Ml Vial) 24 unit SUBCUT BEDTIME [facility] Last Admin: 12/20/24 21:21 Dose: 24 unit Documented By: RICARDO Insulin Human Lispro (Insulin Lispro 100 Unit/Ml 3 Ml Vial) 0 unit SUBCUT QIDACHS [facility]; Protocol Last Admin: 12/21/24 07:37 Dose: 2 unit Documented By: RICHY Lisinopril (Lisinopril 10 Mg Tablet) 10 mg PO DAILY [facility]; Protocol Magnesium Hydroxide (Milk Of Magnesia 30 Ml Oral.Susp) 30 ml PO DAILY PRN PRN Reason: Constipation Melatonin (Melatonin 3 Mg Tablet) 6 mg PO BEDTIME PRN PRN Reason: Insomnia Pharmacy Consult (Consult Rx Vancomycin Dosing) 1 each MISCELLANE DAILY PRN PRN Reason: Consult order Sitagliptin Phosphate (Sitagliptin Phosphate 100 Mg Tablet) 100 mg PO DAILY [facility] Sodium Chloride (0.9 % Sodium Chloride Flush 3 Ml Syringe) 3 ml IVFLUSH QSHIFT [facility] Last Admin: 12/21/24 07:37 Dose: 3 ml Documented By: RICHY Labs 12/21/24 04:57 12/21/24 04:57 Labs: Laboratory Results - last 24 hr 12/20/24 12/20/24 12/20/24 10:59 13:44 13:50 MCV 80.7 MCH 27.9 MCHC 34.5 RDW 12.4 Plt Count 284 MPV 10.5 Immature Gran % (Auto) 0.3 Neut % (Auto) 67.3 Lymph % (Auto) 22.9 [place] % (Auto) 7.6 Eos % (Auto) 1.5 Baso % (Auto) 0.4 Lymph # (Auto) 1.7 [place] # (Auto) 0.6 Eos # (Auto) 0.1 Baso # (Auto) 0.0 Abs Immat Gran (auto) 0.02 Absolute Neuts (auto) 4.8 Absolute Nucleated RBC 0.000 Nucleated RBC % (auto) 0.0 VBG pH 7.37 VBG pCO2 50 VBG pO2 33 VBG HCO3 29 H VBG O2 Saturation 50.0 VBG Base Excess 3.8 Anion Gap 10 L Estim Creat Clear Calc 84.2 Estimated GFR > 60 POC Glucose Random Glucose 534 H* Estimat Average Glucose Hemoglobin A1c % Lactic Acid Calcium 8.5 Total Bilirubin 0.2 Direct Bilirubin < 0.2 AST 16 ALT 26 Alkaline Phosphatase 116 Total Protein 6.3 L Albumin 2.9 L Beta-Hydroxybutyrate 0.11 Procalcitonin 12/20/24 12/20/24 12/20/24 15:31 16:56 17:05 MCV 80.5 MCH 28.3 MCHC 35.2 H RDW 12.4 Plt Count 300 MPV 10.4 Immature Gran % (Auto) 0.3 Neut % (Auto) 61.0 Lymph % (Auto) 30.1 [place] % (Auto) 6.9 Eos % (Auto) 1.4 Baso % (Auto) 0.3 Lymph # (Auto) 2.2 [place] # (Auto) 0.5 Eos # (Auto) 0.1 Baso # (Auto) 0.0 Abs Immat Gran (auto) 0.02 Absolute Neuts (auto) 4.4 Absolute Nucleated RBC 0.000 Nucleated RBC % (auto) 0.0 VBG pH VBG pCO2 VBG pO2 VBG HCO3 VBG O2 Saturation VBG Base Excess Anion Gap 8 L Estim Creat Clear Calc 101.0 Estimated GFR > 60 POC Glucose 263 H Random Glucose 302 H Estimat Average Glucose TNP Hemoglobin A1c % > 14.0 H Lactic Acid 0.9 0.9 Calcium 8.5 Total Bilirubin 0.2 Direct Bilirubin AST 29 ALT 24 Alkaline Phosphatase 103 Total Protein 5.9 L Albumin 2.8 L Beta-Hydroxybutyrate Procalcitonin 0.03 12/20/24 12/21/24 12/21/24 20:53 04:57 07:03 MCV 82.0 MCH 27.3 MCHC 33.2 RDW 12.4 Plt Count 295 MPV 10.7 Immature Gran % (Auto) 0.2 Neut % (Auto) 50.7 Lymph % (Auto) 38.6 [place] % (Auto) 7.7 Eos % (Auto) 2.5 Baso % (Auto) 0.3 Lymph # (Auto) 2.5 [place] # (Auto) 0.5 Eos # (Auto) 0.2 Baso # (Auto) 0.0 Abs Immat Gran (auto) 0.01 Absolute Neuts (auto) 3.3 Absolute Nucleated RBC 0.000 Nucleated RBC % (auto) 0.0 VBG pH VBG pCO2 VBG pO2 VBG HCO3 VBG O2 Saturation VBG Base Excess Anion Gap 8 L Estim Creat Clear Calc 94.7 Estimated GFR > 60 POC Glucose 357 H* 138 H Random Glucose 93 Estimat Average Glucose Hemoglobin A1c % Lactic Acid Calcium 8.3 L Total Bilirubin 0.2 Direct Bilirubin AST 25 ALT 22 Alkaline Phosphatase 89 Total Protein 5.4 L Albumin 2.5 L Beta-Hydroxybutyrate Procalcitonin Quality Stroke Does the patient have a stroke diagnosis?: No VTE Prior VTE?: No VTE Risk Level:: Medical - moderate - high VTE Device Contraindication: N/A - Device Ordered VTE Drug Contraindication: N/A - Med Ordered
[2024-12-21 08:12] VITALS: BMI 22.6
--- NOTE | 2024-12-21 08:25 | P.PNGS_ITS ---
Subjective Subjective Date of Service: 12/21/24 <Ramiro Carlson PA-C - Last Filed: 12/21/24 08:45> 12/21/24 <Thiago Hidalgo MD - Last Filed: 12/21/24 16:23> Interval history: inhouse recycling specialist used for this evaluation. patient states that the pain and swelling has improved some since she has started antibiotics. The redness remains about the same. she denies fevers or chills. denies drainage from the area. Has not has this happen to her in the past. There is no previous trauma to the area. denies family history of breast cancer. Her last mammo was 3 years ago, missed a recent appointment due to an emergency. <MCKENZIE Benavides Last Filed: 12/21/24 08:45> Physical Exam 2 Vital Signs: Vital Signs: Last Vital Signs Temp 98.3 F 12/21/24 05:54 Pulse 93 12/21/24 05:54 Resp 16 12/21/24 05:54 BP 157/80 H 12/21/24 05:54 Pulse Ox 95 12/21/24 05:54 O2 Del Method Room Air 12/21/24 05:54 BMI result Body Mass Index 22.6 <Ramiro Carlson PA-C - Last Filed: 12/21/24 08:45> Const: General: comfortable and no acute distress <Ramiro Carlson PA-C - Last Filed: 12/21/24 08:45> Orientation/consciousness: patient oriented x3 <Ramiro Carlson PA-C - Last Filed: 12/21/24 08:45> Chest: Other: Left breast: 4 x 4 cm area of erythema and induration just superior to the areola from 12 o'clock to 3 o'clock position. Tender to palpation. No nipple drainage or retraction. no active drainage noted. No evident fluid collection <MCKENZIE Benavides Last Filed: 12/21/24 08:45> Breast/axilla inspection: Other <MCKENZIE Benavides Last Filed: 12/21/24 08:45> Neuro: General: patient oriented x3 <MCKENZIE Benavides Last Filed: 12/21/24 08:45> Objective Data Active Medications Acetaminophen (Acetaminophen 325 Mg Tablet) 650 mg PO Q6H PRN PRN Reason: Pain, Mild 1-3,fever,headache Atorvastatin Calcium (Atorvastatin Calcium 40 Mg Tablet) 40 mg PO DAILY [facility] Calcium Carbonate (Calcium Carbonate 750 Mg Tab.Chew) 750 mg PO Q4H PRN PRN Reason: Heartburn Ceftriaxone Sodium (Ceftriaxone Sodium 1 Gm Vial) 1 gm IVPUSH Q24H [facility] Last Admin: 12/20/24 20:00 Dose: 1 gm Documented By: RICARDO Dextrose (Dextrose 50 % 25 Gm/50 Ml Syringe) 25 gm IVPUSH Q15M PRN; Protocol PRN Reason: per Hypoglycemia Standing Ord. Empagliflozin (Empagliflozin 10 Mg Tablet) 10 mg PO DAILY [facility] Gabapentin (Gabapentin 300 Mg Capsule) 300 mg PO TID [facility] Last Admin: 12/20/24 20:00 Dose: 300 mg Documented By: RICARDO Glipizide (Glipizide Xl 5 Mg Tab.Er.24) 5 mg PO DAILY [facility] Glucose (Glucose Gel 15 Gm Gel..Gram.) 15 gm PO Q15M PRN; Protocol PRN Reason: per Hypoglycemia Standing Ord. Vancomycin HCl 1,250 mg/ (Sodium Chloride) 250 mls @ 166.667 mls/hr IV Q12H [facility] Last Infusion: 12/21/24 04:57 Dose: Infused Documented By: RICARDO Insulin Glargine (Insulin Glargine,Hum.Rec.Anlog 100 Unit/Ml 10 Ml Vial) 24 unit SUBCUT BEDTIME [facility] Last Admin: 12/20/24 21:21 Dose: 24 unit Documented By: RICARDO Insulin Human Lispro (Insulin Lispro 100 Unit/Ml 3 Ml Vial) 0 unit SUBCUT QIDACHS [facility]; Protocol Last Admin: 12/21/24 07:37 Dose: 2 unit Documented By: RICHY Lisinopril (Lisinopril 10 Mg Tablet) 10 mg PO DAILY [facility]; Protocol Magnesium Hydroxide (Milk Of Magnesia 30 Ml Oral.Susp) 30 ml PO DAILY PRN PRN Reason: Constipation Melatonin (Melatonin 3 Mg Tablet) 6 mg PO BEDTIME PRN PRN Reason: Insomnia Pharmacy Consult (Consult Rx Vancomycin Dosing) 1 each MISCELLANE DAILY PRN PRN Reason: Consult order Sitagliptin Phosphate (Sitagliptin Phosphate 100 Mg Tablet) 100 mg PO DAILY [facility] Sodium Chloride (0.9 % Sodium Chloride Flush 3 Ml Syringe) 3 ml IVFLUSH QSHIFT [facility] Last Admin: 12/21/24 07:37 Dose: 3 ml Documented By: RICHY <Ramiro Carlson PA-C - Last Filed: 12/21/24 08:45> Labs CBC & Chem 7: 12/21/24 04:57 12/21/24 04:57 <Ramiro Carlson PA-C - Last Filed: 12/21/24 08:45> Labs: Laboratory Results - last 24 hr 12/20/24 12/20/24 12/20/24 10:59 13:44 13:50 MCV 80.7 MCH 27.9 MCHC 34.5 RDW 12.4 Plt Count 284 MPV 10.5 Immature Gran % (Auto) 0.3 Neut % (Auto) 67.3 Lymph % (Auto) 22.9 Blount % (Auto) 7.6 Eos % (Auto) 1.5 Baso % (Auto) 0.4 Lymph # (Auto) 1.7 Blount # (Auto) 0.6 Eos # (Auto) 0.1 Baso # (Auto) 0.0 Abs Immat Gran (auto) 0.02 Absolute Neuts (auto) 4.8 Absolute Nucleated RBC 0.000 Nucleated RBC % (auto) 0.0 VBG pH 7.37 VBG pCO2 50 VBG pO2 33 VBG HCO3 29 H VBG O2 Saturation 50.0 VBG Base Excess 3.8 Anion Gap 10 L Estim Creat Clear Calc 84.2 Estimated GFR > 60 POC Glucose Random Glucose 534 H* Estimat Average Glucose Hemoglobin A1c % Lactic Acid Calcium 8.5 Total Bilirubin 0.2 Direct Bilirubin < 0.2 AST 16 ALT 26 Alkaline Phosphatase 116 Total Protein 6.3 L Albumin 2.9 L Beta-Hydroxybutyrate 0.11 Procalcitonin 12/20/24 12/20/24 12/20/24 15:31 16:56 17:05 MCV 80.5 MCH 28.3 MCHC 35.2 H RDW 12.4 Plt Count 300 MPV 10.4 Immature Gran % (Auto) 0.3 Neut % (Auto) 61.0 Lymph % (Auto) 30.1 Blount % (Auto) 6.9 Eos % (Auto) 1.4 Baso % (Auto) 0.3 Lymph # (Auto) 2.2 Blount # (Auto) 0.5 Eos # (Auto) 0.1 Baso # (Auto) 0.0 Abs Immat Gran (auto) 0.02 Absolute Neuts (auto) 4.4 Absolute Nucleated RBC 0.000 Nucleated RBC % (auto) 0.0 VBG pH VBG pCO2 VBG pO2 VBG HCO3 VBG O2 Saturation VBG Base Excess Anion Gap 8 L Estim Creat Clear Calc 101.0 Estimated GFR > 60 POC Glucose 263 H Random Glucose 302 H Estimat Average Glucose TNP Hemoglobin A1c % > 14.0 H Lactic Acid 0.9 0.9 Calcium 8.5 Total Bilirubin 0.2 Direct Bilirubin AST 29 ALT 24 Alkaline Phosphatase 103 Total Protein 5.9 L Albumin 2.8 L Beta-Hydroxybutyrate Procalcitonin 0.03 12/20/24 12/21/24 12/21/24 20:53 04:57 07:03 MCV 82.0 MCH 27.3 MCHC 33.2 RDW 12.4 Plt Count 295 MPV 10.7 Immature Gran % (Auto) 0.2 Neut % (Auto) 50.7 Lymph % (Auto) 38.6 Blount % (Auto) 7.7 Eos % (Auto) 2.5 Baso % (Auto) 0.3 Lymph # (Auto) 2.5 Blount # (Auto) 0.5 Eos # (Auto) 0.2 Baso # (Auto) 0.0 Abs Immat Gran (auto) 0.01 Absolute Neuts (auto) 3.3 Absolute Nucleated RBC 0.000 Nucleated RBC % (auto) 0.0 VBG pH VBG pCO2 VBG pO2 VBG HCO3 VBG O2 Saturation VBG Base Excess Anion Gap 8 L Estim Creat Clear Calc 94.7 Estimated GFR > 60 POC Glucose 357 H* 138 H Random Glucose 93 Estimat Average Glucose Hemoglobin A1c % Lactic Acid Calcium 8.3 L Total Bilirubin 0.2 Direct Bilirubin AST 25 ALT 22 Alkaline Phosphatase 89 Total Protein 5.4 L Albumin 2.5 L Beta-Hydroxybutyrate Procalcitonin <Ramiro Carlson PA-C - Last Filed: 12/21/24 08:45> Procedures Date of Service Date of Service: 12/21/24 <Ramiro Carlson PA-C - Last Filed: 12/21/24 08:45> 12/21/24 <Thiago Hidalgo MD - Last Filed: 12/21/24 16:23> Progress Note: A&P Assessment and plan (1) Breast infection in female: Status: Acute <Ramiro Carlson PA-C - Last Filed: 12/21/24 08:45> Assessment and Plan: Says the swelling and redness have improved significantly She feels comfortable No fever No fluctuant area No need for I and D at this time Continue antibiotics Seen and examined independently <Thiago Hidalgo MD - Last Filed: 12/21/24 16:23> (2) Cellulitis: Status: Acute <Ramiro Carlson PA-C - Last Filed: 12/21/24 08:45> Assessment and Plan: In-house marketing outreach coordinator used for this evaluation. 44-year-old female with poorly controlled diabetes admitted for management of left breast cellulitis, phlegmon. Overall she feels a bit improved since starting antibiotics. Feels that the swelling has gone down feels a little bit less painful. She denies any fevers or chills there was no active drainage at this point. On exam there was a 4 x 4 cm area of erythema and induration just superior to the areola from the 12:00 to 3 o'clock position it did not appreciate any fluid collection that would require drainage at this point, however this may need to be drained in the future. No current plan to I and D this, but discussed the possibility with the patient who understands. She denies a family history of breast cancer, her last mammogram was 3 years ago but she missed an appointment this year due to an emergency, recommended that she follow-up with primary and become current with breast cancer screening. She has very poorly controlled diabetes. On presentation random glucose was 534, somewhat improved today but still elevated, patient will need optimal glucose control for adequate wound healing. At home she is on insulin, also Januvia, glipizide states he has taking these as prescribed most days, occasionally she misses doses. Ms. Stressed the importance of glucose control for wound healing. Continue IV antibiotics Glucose control Diabetic diet recommended We will continue to follow for possible abscess formation, possible I and D < Ramiro Carlson PA-C - Last Filed: 12/21/24 08:45> Time Spent With Patient Time: Total time managing care of this patient today ____ minutes. <Ramiro Carlson PA-C - Last Filed: 12/21/24 08:45> Quality Stroke Does the patient have a stroke diagnosis?: No <Ramiro Carlson PA-C - Last Filed: 12/21/24 08:45> VTE Prior VTE?: No <Ramiro Carlson PA-C - Last Filed: 12/21/24 08:45> VTE Risk Level:: Medical - moderate - high <Ramiro Carlson PA-C - Last Filed: 12/21/24 08:45> VTE Device Contraindication: N/A - Device Ordered <Ramiro Carlson PA-C - Last Filed: 12/21/24 08:45> VTE Drug Contraindication: N/A - Med Ordered <Ramiro Carlson PA-C - Last Filed: 12/21/24 08:45>
[2024-12-21 08:35] VITALS: BP 148/78; PULSE 89; RESP 18; TEMP 36.2; O2SAT 99
[2024-12-21 08:44] LABS: Glucose, Whole Blood 167 mg/dL (60-115)
--- NOTE | 2024-12-21 11:26 | PM.DS ---
DS: Providers Provider Date of Service: 12/21/24 Date of admission: 12/20/24 19:32 Date of discharge: 12/21/24 Primary care physician: Arabella Correia MD Consults: 12/20/24 17:38 Consult to General Surgery Routine Consulting Provider: [facility] General Surgeons Reason for consultation: L nipple abscess ? drain DS: Diagnosis Discharge Diagnosis (1) Breast infection in female: Status: Acute (2) Cellulitis: Status: Acute DS: Summary Hospital Course Hospital Course: Left breast cellulitis, phlegmon 2/2 poorly controlled DM type 2 Patient is a pleasant primarily Citizen [place]-speaking 44-year-old with PMH notable for poorly controlled DM type 2 (A1c greater than 14 POA), HTN, HLD who had gradually progressive subacutely worsening atraumatic cellulitis likely in the setting of poorly controlled A1c (A1c was greater than 14 this admission and in 2022 it was 8). Patient initially went to urgent care and was advised to monitor and go to the ED if it did not subside which the patient did. Patient met SIRS criteria on admission. On presentation, she was noted to have a 4 x 4 cm area of erythema and induration just superior to the areola from the 12:00 to 3 o'clock position without any abscess or fluctuance on ultrasound or palpation. Patient reports her last mammogram was 3 years ago, is due for another mammogram. Surgery was consulted and deemed she did not need I and D this admission. Given that patient remains hemodynamically stable, she is being prescribed Keflex and doxycycline for 10 day course and advised to follow up with PCP or return to the ED if not improving. it did not appreciate any fluid collection that would require drainage at this point, however this may need to be drained in the future. Poorly controlled insulin-dependent DM type 2 Severe hyperglycemia (534) without metabolic acidosis-likely diabetes and sepsis Patient is on insulin at home, unsure about medical literacy, hence she has been educated about diabetic diet and insulin regimen is being adjusted at the time of this discharge. For her diabetes medication regimen, we are continuing her home dose of Lantus 30 units at bedtime followed by insulin sliding scale, starting her on metformin 500 mg once daily and if she is able to tolerate the GI side effects of metformin, she can initiate 500 mg b.i.d. after 1 week, and uptitrate to maximum dose of 1 g b.i.d., we will discontinue glipizide given that she is already on insulin lispro and Lantus. Diabetes medication regimen at the time of discharge: Lantus 30 units QPM Cont Lispro medium correction scale Initiated metformin 500 q.p.m this admission-her primary refinery operator assistant to uptitrate Stoppped Glipizide from home meds Cont SGLT-2 Inh Metabolic syndrome HTN HLD Continue home meds as the patient appears to be hypertensive which is likely reactive response from stress, hence no adjustments have been made at the time of this admission . DVT prophylaxis with Lovenox Patient to see her PCP in a week Referral to Citizen [place]-speaking refinery operator assistant placed in a week This note is constructed using voice recognition software. While every effort has been made to ensure accuracy, ship construction teacher errors may have been included. Time spent discussing smoking cessation with patient: more than 10 minutes Time Attestation Discharge Coordination Time (in mins): 35 minutes Quality: Safe Use of Opioids Does Pt have an Active Cancer Diagnosis on the Problem List?: No Quality: Stroke Does the patient have a stroke diagnosis?: No Physical Exam Vital Signs: Vital Signs: Last Vital Signs Temp 97.2 F 12/21/24 08:35 Pulse 89 12/21/24 08:35 Resp 18 12/21/24 08:35 BP 148/78 H 12/21/24 08:35 Pulse Ox 99 12/21/24 08:35 O2 Del Method Room Air 12/21/24 08:35 BMI result Body Mass Index 22.6 DS: Data Data Completed and Pending Labs on day of discharge: Laboratory Results - last 24 hr 12/20/24 12/20/24 12/20/24 10:59 13:44 13:50 WBC RBC Hgb Hct MCV MCH MCHC RDW Plt Count MPV Immature Gran % (Auto) Neut % (Auto) Lymph % (Auto) Giles % (Auto) Eos % (Auto) Baso % (Auto) Lymph # (Auto) Giles # (Auto) Eos # (Auto) Baso # (Auto) Abs Immat Gran (auto) Absolute Neuts (auto) Absolute Nucleated RBC Nucleated RBC % (auto) VBG pH 7.37 VBG pCO2 50 VBG pO2 33 VBG HCO3 29 H VBG O2 Saturation 50.0 VBG Base Excess 3.8 Sodium 133 L Potassium 5.0 Chloride 100 Carbon Dioxide 28 Anion Gap 10 L BUN 13 Creatinine 0.72 Estim Creat Clear Calc 84.2 Estimated GFR > 60 POC Glucose Random Glucose 534 H* Estimat Average Glucose Hemoglobin A1c % Lactic Acid Calcium 8.5 Total Bilirubin 0.2 Direct Bilirubin < 0.2 AST 16 ALT 26 Alkaline Phosphatase 116 Total Protein 6.3 L Albumin 2.9 L Beta-Hydroxybutyrate 0.11 Procalcitonin 12/20/24 12/20/24 12/20/24 15:31 16:56 17:05 WBC 7.3 RBC 4.10 L Hgb 11.6 L Hct 33.0 L MCV 80.5 MCH 28.3 MCHC 35.2 H RDW 12.4 Plt Count 300 MPV 10.4 Immature Gran % (Auto) 0.3 Neut % (Auto) 61.0 Lymph % (Auto) 30.1 Giles % (Auto) 6.9 Eos % (Auto) 1.4 Baso % (Auto) 0.3 Lymph # (Auto) 2.2 Giles # (Auto) 0.5 Eos # (Auto) 0.1 Baso # (Auto) 0.0 Abs Immat Gran (auto) 0.02 Absolute Neuts (auto) 4.4 Absolute Nucleated RBC 0.000 Nucleated RBC % (auto) 0.0 VBG pH VBG pCO2 VBG pO2 VBG HCO3 VBG O2 Saturation VBG Base Excess Sodium 135 Potassium 4.1 Chloride 102 Carbon Dioxide 29 Anion Gap 8 L BUN 12 Creatinine 0.60 Estim Creat Clear Calc 101.0 Estimated GFR > 60 POC Glucose 263 H Random Glucose 302 H Estimat Average Glucose TNP Hemoglobin A1c % > 14.0 H Lactic Acid 0.9 0.9 Calcium 8.5 Total Bilirubin 0.2 Direct Bilirubin AST 29 ALT 24 Alkaline Phosphatase 103 Total Protein 5.9 L Albumin 2.8 L Beta-Hydroxybutyrate Procalcitonin 0.03 12/20/24 12/21/24 12/21/24 20:53 04:57 07:03 WBC 6.5 RBC 4.11 L Hgb 11.2 L Hct 33.7 L MCV 82.0 MCH 27.3 MCHC 33.2 RDW 12.4 Plt Count 295 MPV 10.7 Immature Gran % (Auto) 0.2 Neut % (Auto) 50.7 Lymph % (Auto) 38.6 Giles % (Auto) 7.7 Eos % (Auto) 2.5 Baso % (Auto) 0.3 Lymph # (Auto) 2.5 Giles # (Auto) 0.5 Eos # (Auto) 0.2 Baso # (Auto) 0.0 Abs Immat Gran (auto) 0.01 Absolute Neuts (auto) 3.3 Absolute Nucleated RBC 0.000 Nucleated RBC % (auto) 0.0 VBG pH VBG pCO2 VBG pO2 VBG HCO3 VBG O2 Saturation VBG Base Excess Sodium 139 Potassium 4.1 Chloride 108 Carbon Dioxide 27 Anion Gap 8 L BUN 11 Creatinine 0.64 Estim Creat Clear Calc 94.7 Estimated GFR > 60 POC Glucose 357 H* 138 H Random Glucose 93 Estimat Average Glucose Hemoglobin A1c % Lactic Acid Calcium 8.3 L Total Bilirubin 0.2 Direct Bilirubin AST 25 ALT 22 Alkaline Phosphatase 89 Total Protein 5.4 L Albumin 2.5 L Beta-Hydroxybutyrate Procalcitonin 12/21/24 08:40 WBC RBC Hgb Hct MCV MCH MCHC RDW Plt Count MPV Immature Gran % (Auto) Neut % (Auto) Lymph % (Auto) Giles % (Auto) Eos % (Auto) Baso % (Auto) Lymph # (Auto) Giles # (Auto) Eos # (Auto) Baso # (Auto) Abs Immat Gran (auto) Absolute Neuts (auto) Absolute Nucleated RBC Nucleated RBC % (auto) VBG pH VBG pCO2 VBG pO2 VBG HCO3 VBG O2 Saturation VBG Base Excess Sodium Potassium Chloride Carbon Dioxide Anion Gap BUN Creatinine Estim Creat Clear Calc Estimated GFR POC Glucose 167 H Random Glucose Estimat Average Glucose Hemoglobin A1c % Lactic Acid Calcium Total Bilirubin Direct Bilirubin AST ALT Alkaline Phosphatase Total Protein Albumin Beta-Hydroxybutyrate Procalcitonin Discharge Plan Discharge Anticipated Discharge Date/Time: 12/21/24 11:45 Patient Disposition: Home, Self-Care Discharge Diagnosis: Left breast cellulitis, phlegmon 2/2 poorly controlled DM type 2 Referrals: Leia Cyr MD [Physician, Endocrinology] - 1 Week Referral Note: Dr. Garcia , patient is a very pleasant 44-year-old who needs optimal control of her diabetes. Her A1c> 14, and appears to have poor medical literacy. Patient is insistent on seeing the Citizen [place]-speaking DrMynor Would greatly appreciate your help. Arabella Elmore MD [Primary Care Provider, Internal Medicine] - 1 Week Discharge Medications: New doxycycline monohydrate 100 mg Capsule 100 mg PO Q12H 10 Days Qty: 20 0RF cephalexin 500 mg Capsule 500 mg PO Q12H 10 Days Qty: 20 0RF Continued atorvastatin 40 mg tablet 40 mg PO DAILY ferrous sulfate 325 mg (65 mg iron) tablet 325 mg PO DAILY lisinopril 10 mg tablet 10 mg PO DAILY gabapentin 300 mg capsule 300 mg PO TID Januvia 100 mg tablet 100 mg PO DAILY insulin glargine [Lantus Solostar U-100 Insulin] 100 unit/mL (3 mL) insulin pen 30 unit subcut BEDTIME melatonin 5 mg tablet 5 mg PO BEDTIME Jardiance 10 mg tablet 10 mg PO DAILY insulin lispro 100 unit/mL insulin pen 5 unit subcut QID 30 Days Qty: 0 0RF Protocol: Insulin Resistant 1st 24 hours Less than or equal to 110 ---- Give (units): 0 111 to 150 Give (units): 2 151 to 200 Give (units): 4 201 to 250 Give (units): 6 251 to 300 Give (units): 8 301 to 350 Give (units): 10 Greater than 350 Give (units): 12 Call MD if Blood Glucose > : 350 Discontinued glipizide 5 mg tablet extended release 24hr 5 mg PO DAILY Discharge Orders: Discharge Order (Routine); Ordered 12/21/24 Ordered By: Marii Joseph Diet: Diabetic diet Activity on Discharge: As tolerated Stand Alone Forms: Patient Portal Discharge page Print Language: Citizen Of [place] Care Plan Goals: Diabetes control with establishing Podiatry, Ophthalmology and albuminuria resolution of skin cellulitis Follow-up with PCP Establish with a new Citizen [place]-speaking refinery operator assistant Health Concerns: See above Plan of Treatment: See above Assessment: See above Patient Instructions: Cellulitis (GEN), Diabetic Hyperglycemia (GEN), Diabetes and Nutrition (GEN), Type 2 Diabetes Management for Adults (DC)
[2024-12-21 11:31] LABS: Glucose, Whole Blood 122 mg/dL (60-115)
--- NOTE | 2024-12-21 12:57 | MHC.CM.PN ---
pt is indepedent and is dcd today homre n/s
[2024-12-21] MEDS: Flu Vacc TS2025-26(6mo up)/PF 0.5 ML SYRINGE IM (14:14)
[2024-12-21 14:15] VITALS: BP 133/76; PULSE 94; RESP 18; TEMP 36.4; O2SAT 100
== END 2024-12-21 15:15 | disposition home or self-care (01) | DRG 720 ==
LOC: HO.ED 14:49 → HO.EDOVER 19:42 → HO.S3 12-21 07:34
PROVIDERS: Physician Assistant Medical; Admitting Provider Student in an Organized Health Care Education/Training Program; Emergency Provider Emergency Medicine; PCP Family Medicine; Visit Provider Student in an Organized Health Care Education/Training Program
DX: A41.9 Sepsis, unspecified organism (principal); E11.628 Type 2 diabetes mellitus with other skin complications; E88.810 Metabolic syndrome; E11.65 Type 2 diabetes mellitus with hyperglycemia; N61.0 Mastitis without abscess; I10 Essential (primary) hypertension; E78.5 Hyperlipidemia, unspecified; Z79.4 Long term (current) use of insulin; Z79.899 Other long term (current) drug therapy
CPT/HCPCS: 36415; 76642; 80048; 80053; 80076; 80202; 82010; 82803; 82947; 83036; 83605; 84145; 85025; 87040; 90656; 99285; J0696; J3374; J7120

== ENCOUNTER → 2024-12-20 10:50 | Outpatient (BNV) | payer MEDICAID, SELFPAY | PROVIDERS: Emergency Provider Emergency Medicine; PCP Family Medicine; Visit Provider Radiology Body Imaging | DX: R92.332 Mammographic heterogeneous density, left breast (principal) | CPT/HCPCS: 76642 ==

== ENCOUNTER → 2024-12-20 14:47 | Outpatient (BNV) | payer MEDICAID, SELFPAY | PROVIDERS: Emergency Provider Emergency Medicine; PCP Family Medicine; Visit Provider Student in an Organized Health Care Education/Training Program | DX: N61.0 Mastitis without abscess (principal); L03.90 Cellulitis, unspecified | CPT/HCPCS: 99222; 99239 ==

== ENCOUNTER → 2024-12-20 19:32 | Outpatient (BNV) | payer MEDICAID, SELFPAY | PROVIDERS: Admitting Provider Student in an Organized Health Care Education/Training Program; Emergency Provider Emergency Medicine; PCP Family Medicine; Visit Provider Surgery | DX: N61.0 Mastitis without abscess (principal); L03.90 Cellulitis, unspecified | CPT/HCPCS: 99222; 99499 ==